=== PATIENT | female | born 1975 | race Caucasian/White ===

== ENCOUNTER 2020-03-17 20:19 | Emergency (ER) | payer OTHER ==
[~2020-03-17] VITALS: Ht 165.1 cm; Wt 59.1 kg
[2020-03-17] MEDS ORDERED: TOPI1CAP2 PO (20:32)
[2020-03-17] MEDS ORDERED: CARB10TACH PO (20:32)
[2020-03-17] MEDS ORDERED: LEVO30TA PO (20:32)
[2020-03-17 21:17] LABS: BASO % 0.5 % (0.0-1.0); EOS # 0.1 10^3/uL (0.0-0.5); EOS % 1.1 % (0.0-3.0); HEMATOCRIT 42.2 % (36.0-47.0); LYMPH # 2.8 10^3/uL (1.5-5.0); MEAN CORPUSCULAR HEMOGLOBIN 31.2 pg (27.0-33.0); MEAN CORPUSCULAR HGB CONC 33.2 g/dl (32.0-36.5); MONO # 0.8 10^3/uL (0.0-0.8); NEUTROPHILS # 4.2 10^3/uL (1.5-8.5); NEUTROPHILS % 53.1 % (36.0-66.0); PLATELET COUNT, AUTOMATED 285 10^3/uL (150-450); RED BLOOD COUNT 4.49 10^6/uL (4.00-5.40); WHITE BLOOD COUNT 7.9 10^3/uL (4.0-10.0)
[2020-03-17 21:24] LABS: ALT/SGPT 18 U/L (12-78); BILIRUBIN,DIRECT < 0.1 MG/DL (0.0-0.2); BILIRUBIN,TOTAL 0.2 MG/DL (0.2-1.0); LIPASE 192 U/L (73-393); TOTAL PROTEIN 7.7 GM/DL (6.4-8.2)
[2020-03-17] MEDS ORDERED: ISOVUE-370 76% 100ML VIAL As Ordered ONE (21:27)
[2020-03-17] MEDS ORDERED: NS 1,000 ML IV ONE (21:30)
[2020-03-17] MEDS ORDERED: MORPHINE 4 MG/ML 1ML VIAL/SYRINGE (J2270) IV ONE (21:30)
--- NOTE | 2020-03-17 22:14 | REPVR ---
PROCEDURE INFORMATION: Exam: CT Abdomen And Pelvis With Contrast Exam date and time: 03/17/2020 9:31 PM Age: 45 years old Clinical indication: Abdominal pain; Localized; Left lower quadrant (llq); Additional info: Llq abd pain, diarrhea TECHNIQUE: Imaging protocol: Computed tomography of the abdomen and pelvis with intravenous contrast. Radiation optimization: All CT scans at this facility use at least one of these dose optimization techniques: automated exposure control; mA and/or kV adjustment per patient size (includes targeted exams where dose is matched to clinical indication); or iterative reconstruction. Contrast material: ISOVUE 370; Contrast volume: 100 ml; Contrast route: INTRAVENOUS (IV); COMPARISON: No relevant prior studies available. FINDINGS: Liver: Normal. No mass. Gallbladder and bile ducts: Normal. No calcified stones. No ductal dilation. Pancreas: Suggestion of a 4 mm cyst in the head of the pancreas may be related to volume averaging affects (series 201, image 44). Spleen: Normal. No splenomegaly. Adrenals: Normal. No mass. Kidneys and ureters: Ptosis of the right kidney. No hydronephrosis. Stomach and bowel: The descending colon and rectosigmoid colon are relatively decompressed. No air-fluid levels are seen which might be expected with diarrhea. Appendix: No evidence of appendicitis. Intraperitoneal space: There is a small amount of free fluid in the posterior cul-de-sac. Vasculature: Unremarkable. No abdominal aortic aneurysm. Lymph nodes: Unremarkable. No enlarged lymph nodes. Bladder: Unremarkable as visualized. Reproductive: There is a 4.8 cm cyst present in the left adnexa. The uterus is retroverted and retroflexed and somewhat globular in configuration. Bones/joints: Chronic spondylolysis at L5.. No acute fracture. Soft tissues: There is generalized body wall edema. IMPRESSION: 1. 4.8 cm cyst in the left adnexa. Pelvic ultrasound more ideally suited for evaluation of the uterus and adnexa. 2. Possible 4 mm cyst in the head of the pancreas may be artifact related to volume averaging effects. Follow-up recommended.Recommend reimage every 1 year for 5 years. (PAXTON Edwards et al. ACR White Paper, March 2017) Electronically signed by: Kathy Estrada On 03/17/2020 22:13:36 PM
--- NOTE | 2020-03-17 23:10 | REPVR ---
PROCEDURE INFORMATION: Exam: US Pelvis Complete, Transabdominal and US Pelvis, Transvaginal Exam date and time: 03/17/2020 10:31 PM Age: 45 years old Clinical indication: Pelvic pain; Additional info: R/O torsion, L adenxal cyst TECHNIQUE: Imaging protocol: Real-time transabdominal and transvaginal pelvic ultrasound (complete) with image documentation. Transvaginal imaging was used for better evaluation of the endometrium and adnexa. COMPARISON: CT ABD/PEL W/IV CONTRAST ONLY 2020-03-17 21:28 FINDINGS: Uterus/cervix: Heterogeneous bulky uterus. Retroverted uterus. Amniotic scratch that 3.6 mm endometrial thickness. 7.1 x 4.9 x 5.2 cm uterus. Right adnexa: 1.9 x 1 x 2.1 cm right ovary with normal follicular architecture and blood flow. Left adnexa: 4.9 x 3.4 x 4.6 cm left ovary contains a large 4.5 cm simple ovarian cyst. Free fluid: None. Bladder: Bladder distension. IMPRESSION: 1. Large simple left ovarian cyst, recommend follow-up for resolution in 6 weeks. No evidence of torsion, though elevated risk related to large cyst. 2. Heterogeneous bulky uterus. Electronically signed by: Edgar Azul On 03/17/2020 23:09:12 PM
[2020-03-17 23:32] VITALS: BP 143/81
--- NOTE | 2020-03-21 10:58 | ED PDOC ---
Post-Departure Follow-Up certiifed letter sent to pt re formal read of us pelvis. obtain ob name and numb er and fx Tika Ramos MD Mar 21, 2020 10:58
== END 2020-03-17 23:45 | disposition home or self-care (01) ==
LOC: M ED 20:19
DX: N83.299 Other ovarian cyst, unspecified side (principal); R10.32 Left lower quadrant pain; N85.2 Hypertrophy of uterus; M79.7 Fibromyalgia; G50.0 Trigeminal neuralgia; Z88.0 Allergy status to penicillin; Z88.5 Allergy status to narcotic agent
CPT/HCPCS: 74177; 76830; 76856; 80047; 80076; 81001; 83690; 84702; 85025; 93976; 96361; 96374; 99284; J2270; Q9967

== ENCOUNTER 2020-04-13 08:39 | Emergency (ER) | payer OTHER ==
[~2020-04-13 08:39] MED LIST: CARB10TACH PO; LEVO30TA PO; TOPI1CAP2 PO
[2020-04-13] MEDS ORDERED: MORPHINE 4 MG/ML 1ML VIAL/SYRINGE (J2270) ONE (10:17)
[2020-04-13] MEDS ORDERED: ONDANSETRON 4MG/2ML VIAL ONE (10:17)
[2020-04-13] MEDS ORDERED: ISOVUE-370 76% 100ML VIAL ONE (11:34)
[2020-05-29 02:30] LABS: BASO % 0.4 % (0.0-1.0); EOS # 0.1 10^3/uL (0.0-0.5); EOS % 0.9 % (0.0-3.0); HEMATOCRIT 40.5 % (36.0-47.0); HEMOGLOBIN 13.7 g/dl (12.0-15.5); LYMPH # 1.6 10^3/uL (1.5-5.0); LYMPH % 23.6 % (24.0-44.0); MEAN CORPUSCULAR HEMOGLOBIN 31.4 pg (27.0-33.0); MEAN CORPUSCULAR HGB CONC 33.8 g/dl (32.0-36.5); MEAN CORPUSCULAR VOLUME 92.9 fl (80.0-96.0); MONO # 0.5 10^3/uL (0.0-0.8); MONO % 7.2 % (0.0-5.0); NEUTROPHILS # 4.7 10^3/uL (1.5-8.5); NEUTROPHILS % 67.8 % (36.0-66.0); PLATELET COUNT, AUTOMATED 261 10^3/uL (150-450); RED BLOOD COUNT 4.36 10^6/uL (4.00-5.40); WHITE BLOOD COUNT 6.9 10^3/uL (4.0-10.0)
[2020-05-29 02:43] LABS: APPEARANCE, URINE CLEAR (CLEAR); BACTERIA, URINE AUTO NEGATIVE (NEGATIVE); BILIRUBIN, URINE AUTO NEGATIVE (NEGATIVE); BLOOD, URINE BLOOD NEGATIVE (NEGATIVE); COLOR, URINE STRAW (YELLOW); GLUCOSE, URINE (UA) AUTO NEGATIVE (NEGATIVE); KETONE, URINE AUTO NEGATIVE (NEGATIVE); LEUKOCYTE ESTERASE, URINE AUTO NEGATIVE (NEGATIVE); NITRITE, URINE AUTO NEGATIVE (NEGATIVE); PROTEIN, URINE AUTO NEGATIVE (NEGATIVE); RBC, URINE AUTO 2 /HPF (0-3); SPECIFIC GRAVITY URINE AUTO 1.009 (1.002-1.035); SQUAMOUS EPITHELIAL CELL UR AU 1 /HPF (0-6); UROBILINOGEN, URINE AUTO 0.2 mg/dL (0.0-2.0); WBC, URINE AUTO 0 /HPF (0-3)
[2020-07-08 06:55] LABS: ALBUMIN 3.9 GM/DL (3.2-5.2); ALT/SGPT 19 U/L (12-78); BILIRUBIN,DIRECT < 0.1 MG/DL (0.0-0.2); BILIRUBIN,TOTAL 0.2 MG/DL (0.2-1.0); BLOOD UREA NITROGEN 12 MG/DL (7-18); CARBON DIOXIDE LEVEL 28 MEQ/L (21-32); CHLORIDE LEVEL 109 MEQ/L (98-107); GLOMERULAR FILTRATION RATE > 60.0 (>58); GLUCOSE, FASTING 88 MG/DL (70-100); LIPASE 137 U/L (73-393); POTASSIUM SERUM 4.4 MEQ/L (3.5-5.1); SODIUM LEVEL 141 MEQ/L (136-145); TOTAL PROTEIN 7.3 GM/DL (6.4-8.2)
[2020-07-08 06:58] LABS: HCG, SERUM QUALITATIVE NEGATIVE (NEGATIVE)
== END 2020-04-13 14:30 | disposition home or self-care (01) ==
LOC: M ED 08:39
DX: R10.84 Generalized abdominal pain (principal); M54.5 Low back pain; K86.2 Cyst of pancreas; N83.299 Other ovarian cyst, unspecified side; R11.0 Nausea; E03.9 Hypothyroidism, unspecified; F41.9 Anxiety disorder, unspecified; F12.90 Cannabis use, unspecified, uncomplicated; Z88.5 Allergy status to narcotic agent; Z79.899 Other long term (current) drug therapy
CPT/HCPCS: 74177; 80048; 80076; 81001; 83605; 83690; 84703; 85025; 87040; 87086; 96374; 96375; 99284; J2270; J2405; Q9967

== ENCOUNTER 2020-09-07 12:00 | Emergency (ER) | payer OTHER ==
[~2020-09-07] VITALS: Ht 165.1 cm; Wt 54.3 kg
[2020-09-07] MEDS ORDERED: MORPHINE 4 MG/ML 1ML VIAL/SYRINGE (J2270) IV ONE ×2 (13:45→16:15)
[2020-09-07 14:14] LABS: BASO % 0.5 % (0.0-1.0); EOS # 0.1 10^3/uL (0.0-0.5); HEMATOCRIT 42.7 % (36.0-47.0); HEMOGLOBIN 13.9 g/dl (12.0-15.5); LYMPH # 2.1 10^3/uL (1.5-5.0); MEAN CORPUSCULAR HEMOGLOBIN 30.1 pg (27.0-33.0); MEAN CORPUSCULAR HGB CONC 32.6 g/dl (32.0-36.5); MEAN CORPUSCULAR VOLUME 92.4 fl (80.0-96.0); MONO # 0.7 10^3/uL (0.0-0.8); MONO % 9.7 % (0.0-5.0); NEUTROPHILS # 4.4 10^3/uL (1.5-8.5); NEUTROPHILS % 60.5 % (36.0-66.0); PLATELET COUNT, AUTOMATED 250 10^3/uL (150-450); RED BLOOD COUNT 4.62 10^6/uL (4.00-5.40); WHITE BLOOD COUNT 7.3 10^3/uL (4.0-10.0)
--- NOTE | 2020-09-07 14:26 | REP ---
INDICATION: left-sided numbness. COMPARISON: None. TECHNIQUE: Helical scanning is acquired. 5 mm axial images were reformatted. Coronal MPR images were generated. FINDINGS: Bone window settings demonstrate an intact bony calvarium. There is no evidence of skull fracture or incidental bony calvarial lesion. The visualized paranasal sinuses appear clear. No intraorbital abnormality is seen. On soft tissue window setting images; the lateral, third, and fourth ventricles are normal in size and position. Hernandez-white differentiation pattern is normal above and below the tentorium. There are is no evidence of intracranial hemorrhage. No mass, edema, infarction, or midline shift is seen. No extra-axial fluid collection is appreciated. IMPRESSION: Negative noncontrast head CT. <Electronically signed by Jose Vieira > 09/07/20 [id number]
--- NOTE | 2020-09-07 14:29 | REP ---
INDICATION: CVA COMPARISON: None. TECHNIQUE: Portable AP view of the chest FINDINGS: The mediastinum and cardiac silhouette are within normal limits for portable technique. The lung nava are clear without acute consolidation, effusion, or pneumothorax. Skeletal structures demonstrate thoracic Roach rods. IMPRESSION: No acute cardiopulmonary process appreciated. <Electronically signed by Diego Cody > 09/07/20 [id number]
[2020-09-07 14:33] LABS: INR 1.04; PROTHROMBIN TIME 13.8 SECONDS (12.5-14.3)
[2020-09-07 14:34] LABS: PARTIAL THROMBOPLASTIN TIME 30.3 SECONDS (24.2-38.5)
[2020-09-07 14:48] LABS: BLOOD UREA NITROGEN 13 MG/DL (7-18); CARBON DIOXIDE LEVEL 30 MEQ/L (21-32); CHLORIDE LEVEL 111 MEQ/L (98-107); CPK CREATINE PHOSPHOKINASE 72 U/L (26-192); CREATININE FOR GFR 0.74 MG/DL (0.55-1.30); GLOMERULAR FILTRATION RATE > 60.0 (>58); GLUCOSE, FASTING 93 MG/DL (70-100); MB/CK RELATIVE INDEX 1.39 (< OR =4); POTASSIUM SERUM 3.8 MEQ/L (3.5-5.1); SODIUM LEVEL 143 MEQ/L (136-145); TROPONIN I < 0.02 NG/ML (< 0.10)
--- NOTE | 2020-09-07 16:00 | REP ---
INDICATION: neck pain with L hand numbness. COMPARISON: None. TECHNIQUE: Axial and sagittal imaging planes are utilized for T1 and T2-weighted scans. Sequences include spin-echo, fast spin echo, FLAIR, and diffusion weighted sequences. FINDINGS: No bony calvarial lesion is seen. Craniocervical junction and upper cervical cord are normal in appearance. There is no MR evidence of significant paranasal sinus disease. No intraorbital abnormality is seen. The lateral, third, and fourth ventricles are normal in size and position. Hernandez-white differentiation pattern is intact above and below the tentorium. There is no evidence of intracranial hemorrhage. No mass, infarction, extra-axial fluid collection or midline shift is seen. No abnormal white matter lesion is seen. Diffusion-weighted images show no evidence to suggest acute ischemia. IMPRESSION: Negative brain MRI study. <Electronically signed by Jose Vieira > 09/07/20 [id number]
--- NOTE | 2020-09-07 21:00 | REPVR ---
PROCEDURE INFORMATION: Exam: MR Cervical Spine Without and With Contrast Exam date and time: 09/07/2020 8:24 PM Age: 45 years old Clinical indication: Numbness and radiculopathy and weakness and other: Lt arm numbness; Cervicothoracic region; Radicular pain (radiculopathy); Cervical region; Prior surgery; Surgery date: 6+ months; Additional info: Neck pain with L hand numbness TECHNIQUE: Imaging protocol: Multiplanar magnetic resonance images of the cervical spine without and with intravenous contrast. Contrast material: PROHANCE; Contrast volume: 10 ml; Contrast route: INTRAVENOUS (IV); COMPARISON: No relevant prior studies available. FINDINGS: Vertebrae: Reversal of curvature in the cervical spine. Status post anterior interbody fusion of C6 and C7 using metallic screws. Spinal cord: Normal signal. No cord compression. C2-C3: No significant disc disease. No significant spinal stenosis. C3-C4: No significant disc disease. No significant spinal stenosis. C4-C5: Bulging annulus C4-C5 flattens the ventral subarachnoid space without cord impingement. C5-C6: Posterior disc protrusion at C5-C6 effaces the ventral subarachnoid space without significant cord impingement. C6-C7: No significant disc disease. No significant spinal stenosis. C7-T1: No significant disc disease. No significant spinal stenosis. Vertebral arteries: Expected flow voids in the vertebral arteries. Soft tissues: Unremarkable. IMPRESSION: 1. Bulging annuli at C4-C5 and posterior disc protrusion at C5-C6 without cord impingement. 2. Status post interbody fusion of C6 and C7. Electronically signed by: Yusef Maier On 09/07/2020 21:01:22 PM
[2020-09-07 21:45] VITALS: BP 149/74
--- NOTE | 2020-09-08 21:29 | ECGEPIP ---
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
== END 2020-09-07 22:27 | disposition home or self-care (01) ==
LOC: M ED 12:00
DX: R20.2 Paresthesia of skin (principal); M43.22 Fusion of spine, cervical region; G90.50 Complex regional pain syndrome I, unspecified; F12.10 Cannabis abuse, uncomplicated; Z88.1 Allergy status to other antibiotic agents; Z88.6 Allergy status to analgesic agent; Z88.8 Allergy status to other drugs, medicaments and biological substances; Z79.899 Other long term (current) drug therapy
CPT/HCPCS: 70450; 70551; 71045; 72156; 80048; 82550; 82553; 85025; 85610; 85730; 86850; 86900; 86901; 93005; 93041; 94760; 96374; 96376; 99285; J2270

== ENCOUNTER 2020-10-26 15:52 | Emergency (ER) | payer OTHER ==
[~2020-10-26] VITALS: Ht 165.1 cm; Wt 54.8 kg
--- OUTSIDE RECORDS SUMMARY | 2020-10-26 15:58 | CCD | Continuity of Care Document ---
Author Author Sandra BRICEÑO DO Organization Unknown Address [address] [place] [address] Phone [phone] Care Team Providers Care Shipping Receiving Manager Name Role Phone [address] [phone] Problems Active Problems Provider Date Cervical spondylosis without myelopathy De Briceño DO Onset: 01/12/2018 Thoracic spondylosis with myelopathy De Briceño DO Ons et: 01/12/2018 Degeneration of cervical intervertebral disc De Briceño DO Onset: 04/01/2019 Lumbosacral spondylosis without myelopathy De Briceño DO Onset: 03/16/2020 Social History Type Date Description Comments Sex Unknown ETOH Use Denies alcohol use Tobacco Use Start: Unknown Denies Tobacco Use Recreational Drug Use Denies Drug Use Allergies, Adverse Reactions, Alerts Active Allergies Reaction Severity Comments Date Augmentin 04/22/2018 Codeine 04/22/2018 Inactive Allergies NKDA 01/12/2018 Medications Active Medications SIG Qnty Indications Ordering Provide r Date Medrol 4mg TBPK use as direct ed 1units De Briceño DO 11/23/2018 Hydrocodone-Acetaminophen 5-325mg Tablets Unknown Clindamycin HCL 300mg Capsules Unknown Sumatriptan Succinate 100mg Tablets Niko Duran Rizatriptan Benzoate 5mg Tablets Unknown Amoxicillin/Clavulanate Potassium 875-125mg Tablets Take 1 Tablet By Mouth Every 12 Hours With Meals For 10 Days Unknown Promethazine HCL 25mg Tablets TK 1 T PO Q 4 H prn NV. MDD 4 TS Unknown Oxycodone-Acetaminophen 5-325mg Tablets Unknown Cephalexin 500mg Capsules Unknown Alprazolam 0.5mg Tablets Unknown Zolpidem Tartrate 10mg Tablets Unknown Ashlyna 0.15-0.03&0.01mg Tablets Unknown Topiramate 25mg Tablets [facility] Carbamazepine ER 200mg Tablets ER 12HR Joss Garcia MD Tramadol HCL 50mg Tablets Joss Garcia MD Medical Marijuana Unknown 000 Methylprednisolone 4mg TBPK take as directed on pack Unknown Lorazepam 0.5mg Tablets Joss Garcia MD Vitamin D (Ergocalciferol) 48831Yyzp Capsules [address] Gabapentin 300mg Capsules [facility] Zolpidem Tartrate 5mg Tablets [facility] Levothyroxine Sodium 112mcg Tablets Anson [address] Immunizations Description No Information Available Vital Signs Date Vital Result Comment 09/11/2020 11:24am Height 65 inches 5'5" Weight 130.00 lb BMI (Body Mass Index) 21.6 kg/m2 Respiratory Rate 16 /min Pain Level 7 03/16/2020 3:33pm Height 65 inches 5'5" Weight 130.00 lb BMI (Body Mass Index) 21.6 kg/m2 Results Description No Information Available Procedures Description No Information Available Medical Devices Description No Information Available Encounters Type Date Location Provider Dx Diagnosis Office Visit 09/11/2020 11:30a Main Office De Briceño DO M47.22 Other spondylosis with radiculopathy, cervical region M50.322 Other cervical disc degenera tion at C5-C6 level Assessments Date Code Description Provider 09/11/2020 M47.22 Other spondylosis with radiculop athy, cervical region Viet Shetty MS, Pac 09/11/2020 M47.22 Other spondylosis with radiculop athy, cervical region De Briceño DO 09/11/2020 M50.322 Other cervical disc degeneration at C5-C6 level Viet Shetty, MS, Pac 09/11/2020 M50.322 Other cervical disc degeneration at C5-C6 level De Briceño DO Plan of Treatment Future Appointment(s):* 10/23/2020 1:45 pm - De Briceño DO at Main Office 06/10/2019 - De Briceño DO* M47.22 Other spondylosis with radiculopathy, cervical region* Comments:* 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 Overall symptoms and arsenic levels are decreasing will hold off any invasive level treatment due to every time she moves her neck she gets shooting pain down her left arm we will obtain flexion-extension x-rays and also starting to some mild physical therapy and follow back in 3-4 months called any questions or worsening symptoms patient also seen and evaluated with Dr. Briceño * M50.30 Other cervical disc degeneration, unspecified cervical region * M47.14 Other spondylosis with myelopathy, thoracic region Functional Status Description No Information Available Mental Status Description No Information Available Referrals Description No Information Available
--- OUTSIDE RECORDS SUMMARY | 2020-10-26 15:58 | CCD | Continuity of Care Document ---
Author Author Sandra BRICEÑO DO Organization Unknown Address [address] [place] [address] Phone [phone] Care Team Providers Care Rail Transportation Operator Name Role Phone [address] [phone] Problems Active Problems Provider Date Lumbosacral spondylosis without myelopathy De Briceño DO Onset: 03/16/2020 Degeneration of cervical intervertebral disc De Briceño DO Onset: 04/01/2019 Thoracic spondylosis with myelopathy De Briceño DO Ons et: 01/12/2018 Cervical spondylosis without myelopathy eD Briceño DO Onset: 01/12/2018 Social History Type Date Description Comments Sex [...] Ashlyna 0.15-0.03&0.01mg Tablets Unknown Topiramate 25mg Tablets [facility] Carbamazepine ER 200mg Tablets ER 12HR Joss Garcia MD Tramadol HCL 50mg Tablets Joss Garcia MD Medical Marijuana Unknown 000 Methylprednisolone 4mg TBPK take as directed on pack Unknown Lorazepam 0.5mg Tablets Joss Garcia MD Vitamin D (Ergocalciferol) 87724Enly Capsules [address] Gabapentin 300mg Capsules [facility] Zolpidem Tartrate 5mg Tablets [facility] Levothyroxine Sodium 112mcg Tablets Anson K[address] Dr [...] Date Location Provider Dx Diagnosis Office Visit 03/16/2020 3:30p Main Office De Briceño DO M47.26 Other spondylosis with radiculopathy, lumbar region M47.22 Other spondylosis with radic ulopathy, cervical region M50.30 Other cervical disc degenera tion, unsp cervical region Assessments Date Code Description Provider 03/16/2020 M47.26 Other spondylosis with radiculop athy, lumbar region De Briceño DO 03/16/2020 M47.22 Other spondylosis with radiculop athy, cervical region De Briceño DO 03/16/2020 M50.30 Other cervical disc degeneration , unspecified cervical region De Briceño DO Plan of Treatment No Information Available Functional Status Description No Information Available Mental Status Description No Information Available Referrals Description No Information Available
--- OUTSIDE RECORDS SUMMARY | 2020-10-26 15:59 | CCD ---
Author Author [facility] Organization [facility] Address Unknown Phone Unavailable Care Team Providers Care Memorial Adviser Name Role Phone AMIE, Emi RAMIREZ MD Unavailable Unavailable SHATLA, A ASHLEY BILL Unavailable Unavailable SHATLA, A ASHLEY BILL Unavailable Unavailable SHATLA, A ASHLEY BILL Unavailable Unavailable SHATLA, A ASHLEY BILL Unavailable Unavailable SHATLA, Emi RAMIREZ MD Unavailable Unavailable SHATLA, Emi RAMIREZ MD Unavailable Unavailable SHATLA, A ASHLEY BILL Unavailable Unavailable SHATLA, A ASHLEY BILL Unavailable Unavailable SHATLA, A ASHLEY BILL Unavailable Unavailable SHATLA, A ASHLEY BILL Unavailable Unavailable SHATLA, A ASHLEY BILL Unavailable Unavailable SHATLA, A ASHLEY BILL Unavailable Unavailable SHATLA, A ASHLEY BILL Unavailable Unavailable SHATLA, A ASHLEY BILL Unavailable Unavailable SHATLA, A ASHLEY BILL Unavailable Unavailable SHATLA, A ASHLEY BILL Unavailable Unavailable SHATLA, A AHMED MD Unavailable Unavailable SHATLA, A AHMED MD Unavailable Unavailable SHATLA, A AHMED MD Unavailable Unavailable SHATLA, A AHMED MD Unavailable Unavailable SHATLA, A AHMED MD Unavailable Unavailable SHATLA, A AHMED MD Unavailable Unavailable SHATLA, A AHMED MD Unavailable Unavailable SHATLA, A AHMED MD Unavailable Unavailable SHATLA, A AHMED MD Unavailable Unavailable SHATLA, A AHMED MD Unavailable Unavailable SHATLA, A AHMED MD Unavailable Unavailable SHATLA, A AHMED MD Unavailable Unavailable SHATLA, A AHMED MD Unavailable Unavailable SHATLA, A AHMED MD Unavailable Unavailable SHATLA, A AHMED MD Unavailable Unavailable SHATLA, A AHMED MD Unavailable Unavailable SHATLA, A AHMED MD Unavailable Unavailable SHATLA, A AHMED MD Unavailable Unavailable SHATLA, A AHMED MD Unavailable Unavailable SHATLA, A AHMED MD Unavailable Unavailable SHATLA, A AHMED MD Unavailable Unavailable SHATLA, A AHMED MD Unavailable Unavailable SHATLA, A AHMED MD Unavailable Unavailable SHATLA, A AHMED MD Unavailable Unavailable SHATLA, A AHMED MD Unavailable Unavailable SHATLA, A AHMED MD Unavailable Unavailable SHATLA, A AHMED MD Unavailable Unavailable SHATLA, A AHMED MD Unavailable Unavailable SHATLA, A AHMED MD Unavailable Unavailable SHATLA, A AHMED MD Unavailable Unavailable SHATLA, A AHMED MD Unavailable Unavailable BETTIE BILL, YOLANDA WALSH Unavailable Unavailable Bucsek, Kenneth Moore MD Unavailable Unavailable Bucsek, Kenneth Moore MD Unavailable Unavailable Bucsek, Kenneth Moore MD Unavailable Unavailable Bucsek, Kenneth Moore MD Unavailable Unavailable Bucsek, Kenneth Moore MD Unavailable Unavailable Bucsek, Kenneth Moore MD Unavailable Unavailable Bucsek, Kenneth Moore MD Unavailable Unavailable BucsekKenneth MD Unavailable Unavailable BucsekKenneth MD Unavailable Unavailable BucsekKenneth MD Unavailable Unavailable Bucsek, Kenneth Moore MD Unavailable Unavailable Bucsek, Kenneth Moore MD Unavailable Unavailable Bucsek, Kenneth Moore MD Unavailable Unavailable BucsekKenneth MD Unavailable Unavailable BucsekKenneth MD Unavailable Unavailable Bucsek, Kenneth Moore MD Unavailable Unavailable Bucsek, Kenneth Moore MD Unavailable Unavailable Bucsek, Kenneth Moore MD Unavailable Unavailable Bucsek, Kenneth Moore MD Unavailable Unavailable Bucsek, Kenneth Moore MD Unavailable Unavailable Bucsek, Kenneth Moore MD Unavailable Unavailable Bucsek, Kenneth Moore MD Unavailable Unavailable Bucsek, Kenneth Moore MD Unavailable Unavailable Bucsek, Kenneth Moore MD Unavailable Unavailable Bucsek, Kenneth Moore MD Unavailable Unavailable Bucsek, Kenneth Moore MD Unavailable Unavailable YOLANDA ALEXANDRE MA Unavailable Unavailable JEFF, K MIKE BILL Unavailable Unavailable JEFF, K MIKE BILL Unavailable Unavailable JEFF, K MIKE BILL Unavailable Unavailable JEFF, K MIKE BILL Unavailable Unavailable JEFF, K MIKE BILL Unavailable Unavailable JEFF, K MIKE BILL Unavailable Unavailable JEFF, K MIKE BILL Unavailable Unavailable JEFF, K MIKE BILL Unavailable Unavailable JEFF, K MIKE BILL Unavailable Unavailable JEFF, K MIKE BILL Unavailable Unavailable JEFF, K MIKE BILL Unavailable Unavailable JEFF, K MIKE BILL Unavailable Unavailable JEFF, K MIKE BILL Unavailable Unavailable JEFF, K MIKE BILL Unavailable Unavailable JEFF, K MIKE BILL Unavailable Unavailable JEFF, K MIKE BILL Unavailable Unavailable JEFF, K MIKE BILL Unavailable Unavailable JEFF, K MIKE BILL Unavailable Unavailable JEFF, K MIKE BILL Unavailable Unavailable JEFF, K MIKE BILL Unavailable Unavailable JEFF, K MIKE BILL Unavailable Unavailable JEFF, K MIKE BILL Unavailable Unavailable JEFF, K MIKE BILL Unavailable Unavailable JEFF, K MIKE BILL Unavailable Unavailable JEFF, K MIKE BILL Unavailable Unavailable JEFF, K MIKE BILL Unavailable Unavailable JEFF, K MIKE BILL Unavailable Unavailable JEFF, K MIKE BILL Unavailable Unavailable JEFF, K MIKE BILL Unavailable Unavailable JEFF, K MIKE BILL Unavailable Unavailable JEFF, K MIKE BILL Unavailable Unavailable JEFF, K MIKE BILL Unavailable Unavailable JEFF, K MIKE BILL Unavailable Unavailable JEFF, K MIKE BILL Unavailable Unavailable JEFF, K MIKE BILL Unavailable Unavailable JEFF, K MIKE BILL Unavailable Unavailable JEFF, K MIKE BILL Unavailable Unavailable JEFF, K MIKE BILL Unavailable Unavailable JEFF, K MIKE BILL Unavailable Unavailable JEFF, K MIKE BILL Unavailable Unavailable JEFF, K MIKE BILL Unavailable Unavailable JEFF, K MIKE BILL Unavailable Unavailable JEFF, K MIKE BILL Unavailable Unavailable JEFF, K MIKE BILL Unavailable Unavailable JEFF, K MIKE BILL Unavailable Unavailable JEFF, K MIKE BILL Unavailable Unavailable JEFF, K MIKE BILL Unavailable Unavailable JEFF, K MIKE BILL Unavailable Unavailable JEFF, K MIKE BILL Unavailable Unavailable JEFF, K MIKE BILL Unavailable Unavailable JFEF, K MIKE BILL Unavailable Unavailable JEFF, K MIKE BILL Unavailable Unavailable JEFF, K MIKE BILL Unavailable Unavailable JEFF, K MIKE BILL Unavailable Unavailable Qandah, Basem De Aziz DO Unavailable Unavailab le Qandah, Basem De Aziz DO Unavailable Unavailab le Qandah, Basem De Aziz DO Unavailable Unavailab le Qandah, Basem De Aziz DO Unavailable Unavailab le Qandah, Basem De Aziz DO Unavailable Unavailab le Qandah, Basem De Aziz DO Unavailable Unavailab le Qandah, Basem De Aziz DO Unavailable Unavailab le Qandah, Basem De Aziz DO Unavailable Unavailab le Qandah, Basem De Aziz DO Unavailable Unavailab le Qandah, Basem De Aziz DO Unavailable Unavailab le Qandah, Basem De Aziz DO Unavailable Unavailab le Qandah, Basem De Aziz DO Unavailable Unavailab le Qandah, Basem De Aziz DO Unavailable Unavailab le Qandah, Basem De Aziz DO Unavailable Unavailab le Qandah, Basem De Aziz DO Unavailable Unavailab le Qandah, Basem De Aziz DO Unavailable Unavailab le Qandah, Basem De Aziz DO Unavailable Unavailab le Qandah, Basem De Aziz DO Unavailable Unavailab le Qandah, Basem De Aziz DO Unavailable Unavailab le Qandah, Basem De Aziz DO Unavailable Unavailab le Qandah, Basem De Aziz DO Unavailable Unavailab le Qandah, Basem De Aziz DO Unavailable Unavailab le Qandah, Basem De Aziz DO Unavailable Unavailab le Qandah, Basem De Aziz DO Unavailable Unavailab le Qandah, Basem De Aziz DO Unavailable Unavailab le Qandah, Basem De Aziz DO Unavailable Unavailab le Qandah, Basem De Aziz DO Unavailable Unavailab le Qandah, Basem De Aziz DO Unavailable Unavailab le Qandah, Basem De Aziz DO Unavailable Unavailab le Qandah, Basem De Aziz DO Unavailable Unavailab le Qandah, Basem De Aziz DO Unavailable Unavailab le Qandah, Basem De Aziz DO Unavailable Unavailab le Qandah, Basem De Aziz DO Unavailable Unavailab le Qandah, Basem De Aziz DO Unavailable Unavailab le Qandah, Basem De Aziz DO Unavailable Unavailab le Qandah, Basem De Aziz DO Unavailable Unavailab le Qandah, Basem De Aziz DO Unavailable Unavailab le Qandah, Basem De Aziz DO Unavailable Unavailab le Qandah, Basem De Aziz DO Unavailable Unavailab le Qandah, Basem De Aziz DO Unavailable Unavailab le Qandah, Basem De Aziz DO Unavailable Unavailab le Qandah, Basem De Aziz DO Unavailable Unavailab le Qandah, Basem De Aziz DO Unavailable Unavailab le Qandah, Basem De Aziz DO Unavailable Unavailab le Qandah, Basem De Aziz DO Unavailable Unavailab le Qandah, Basem De Aziz DO Unavailable Unavailab le Qandah, Basem De Aziz DO Unavailable Unavailab le Qandah, Basem De Aziz DO Unavailable Unavailab le Qandah, Basem De Aziz DO Unavailable Unavailab le Qandah, Basem De Aziz DO Unavailable Unavailab le Qandah, Basem De Aziz DO Unavailable Unavailab le Qandah, Basem De Aziz DO Unavailable Unavailab le Qandah, Basem De Aziz DO Unavailable Unavailab le Qandah, Basem De Aziz DO Unavailable Unavailab le Qandah, Basem De Aziz DO Unavailable Unavailab le Qandah, Basem De Aziz DO Unavailable Unavailab le Qandah, Basem De Aziz DO Unavailable Unavailab le Qandah, Basem De Aziz DO Unavailable Unavailab le Qandah, Basem De Aziz DO Unavailable Unavailab le Qandah, Basem De Aziz DO Unavailable Unavailab le Qandah, Basem De Aziz DO Unavailable Unavailab le Qandah, Basem De Aziz DO Unavailable Unavailab le Qandah, Basem De Aziz DO Unavailable Unavailab le Qandah, Basem De Aziz DO Unavailable Unavailab le Qandah, Basem De Aziz DO Unavailable Unavailab le Qandah, Basem De Aziz DO Unavailable Unavailab le Qandah, Basem De Aziz DO Unavailable Unavailab le Qandah, Basem De Aziz DO Unavailable Unavailab le Qandah, Basem De Aziz DO Unavailable Unavailab le Sarthak CORONADO MD Unavailable Unavailable Sarthak CORONADO MD Unavailable Unavailable Sarthak CORONADO MD Unavailable Unavailable Sarthak CORONADO MD Unavailable Unavailable Sarthak CORONADO MD Unavailable Unavailable Sarthak CORONADO MD Unavailable Unavailable Sarthak CORONADO MD Unavailable Unavailable Sarthak CORONADO MD Unavailable Unavailable Sarthak CORONADO MD Unavailable Unavailable Sarthak CORONADO MD Unavailable Unavailable Sarthak CORONADO MD Unavailable Unavailable Sarthak CORONADO MD Unavailable Unavailable Sarthak CORONADO MD Unavailable Unavailable Sarthak CORONADO MD Unavailable Unavailable Sarthak CORONADO MD Unavailable Unavailable Sarthak CORONADO MD Unavailable Unavailable Sarthak CORONADO MD Unavailable Unavailable Sarthak CORONADO MD Unavailable Unavailable Sarthak CORONADO MD Unavailable Unavailable BREHASarthak STROUD MD Unavailable Unavailable BREHASarthak STROUD MD Unavailable Unavailable BREHAUTSarthak MD Unavailable Unavailable BREHAUT, Sarthak MALCOLM MD Unavailable Unavailable BREHAUT, Sarthak MALCOLM MD Unavailable Unavailable BREHAUT, Sarthak MALCOLM MD Unavailable Unavailable BREHAUTSarthak MD Unavailable Unavailable BREHASarthak STROUD MD Unavailable Unavailable BREHASarthak STROUD MD Unavailable Unavailable BREHAUTSarthak MD Unavailable Unavailable BREHAUT, Sarthak MALCOLM MD Unavailable Unavailable BREHAUT, Sarthak MALCOLM MD Unavailable Unavailable BREHAUT, Sarthak MALCOLM MD Unavailable Unavailable BREHAUTSarthak MD Unavailable Unavailable BREHASarthak STROUD MD Unavailable Unavailable BREHASarthak STROUD MD Unavailable Unavailable BREHASarthak STROUD MD Unavailable Unavailable BREHAUTSarthak MD Unavailable Unavailable BREHAUT, Sarthak MALCOLM MD Unavailable Unavailable BREHAMAXIMUS, Sarthak MALCOLM MD Unavailable Unavailable BREHASarthak STROUD MD Unavailable Unavailable BRESrathak PORTILLO MD Unavailable Unavailable BREHASarthak STROUD MD Unavailable Unavailable BREHASarthak STROUD MD Unavailable Unavailable BREHASarthak STROUD MD Unavailable Unavailable BREHASarthak STROUD MD Unavailable Unavailable BREHASarthak STROUD MD Unavailable Unavailable BRESarthak PORTILLO MD Unavailable Unavailable BRESarthak PORTILLO MD Unavailable Unavailable BRESarthak PORTILLO MD Unavailable Unavailable BREHASarthak STROUD MD Unavailable Unavailable BREHASarthak STROUD MD Unavailable Unavailable BREHASarthak STROUD MD Unavailable Unavailable BRESarthak PORTILLO MD Unavailable Unavailable BRESarthak PORTILLO MD Unavailable Unavailable BRESarthak PORTILLO MD Unavailable Unavailable BRESarthak PORTILLO MD Unavailable Unavailable BRESarthak PORTILLO MD Unavailable Unavailable BREHASarthak STROUD MD Unavailable Unavailable BREHASarthak STROUD MD Unavailable Unavailable BREHASarthak STROUD MD Unavailable Unavailable BRESarthak PORTILLO MD Unavailable Unavailable BRESarthak PORTILLO MD Unavailable Unavailable BRESarthak PORTILLO MD Unavailable Unavailable BRESarthak PORTILLO MD Unavailable Unavailable Yoandy Randall MD Unavailable Unavailable Yoandy Randall MD Unavailable Unavailable Yoandy Randall MD Unavailable Unavailable Yoandy Randall MD Unavailable Unavailable Yoandy Randall MD Unavailable Unavailable Yoandy Randall MD Unavailable Unavailable Yoandy Randall MD Unavailable Unavailable Yoandy Randall MD Unavailable Unavailable Chahfe, Yoandy Osvaldo MD Unavailable Unavailable Chahfe, Yoandy Osvaldo MD Unavailable Unavailable Chahfe, Yoandy Osvaldo BILL Unavailable Unavailable Chahfe, Yoandy Osvaldo MD Unavailable Unavailable Chahfe, Yoandy Osvaldo MD Unavailable Unavailable Chahfe, Yoandy Osvaldo BILL Unavailable Unavailable Chahfe, Yoandy Osvaldo MD Unavailable Unavailable Chahfe, Yoandy Osvaldo MD Unavailable Unavailable Chahfe, Yoandy Osvaldo MD Unavailable Unavailable Chahfe, Yoandy Osvaldo MD Unavailable Unavailable Chahfe, Yoandy Osvaldo MD Unavailable Unavailable Chahfe, Yoandy Osvaldo MD Unavailable Unavailable Chahfe, Yoandy Ovsaldo MD Unavailable Unavailable Chahfe, Yoandy Osvaldo MD Unavailable Unavailable Chahfe, Yoandy Osvaldo MD Unavailable Unavailable Chahfe, Yoandy Osvaldo MD Unavailable Unavailable Chahfe, Yoandy Osvaldo MD Unavailable Unavailable Giuliahfe, Yoandy Osvaldo BILL Unavailable Unavailable Chahfe, Yoandy Osvaldo MD Unavailable Unavailable Chahfe, Yoandy Osvaldo MD Unavailable Unavailable Chahfe, Yoandypato Palm MD Unavailable Unavailable Giuliahfe, Yoandy Osvaldo BILL Unavailable Unavailable Elefe, Yoandypato Palm MD Unavailable Unavailable Elefe, Yoandypato Palm MD Unavailable Unavailable Elefe, Yoandypato Palm MD Unavailable Unavailable Elefe, Yoandypato Palm MD Unavailable Unavailable Elefe, Yoandypato Palm MD Unavailable Unavailable Elefe, Yoandypato Palm MD Unavailable Unavailable Elefe, Yoandypato Palm MD Unavailable Unavailable Elefe, Yoandypato Palm MD Unavailable Unavailable Elefe, Yoandypato Palm MD Unavailable Unavailable Elefe, Yoandypato Palm MD Unavailable Unavailable Elefe, Yoandypato Palm MD Unavailable Unavailable Tonia, Yoandypato Palm MD Unavailable Unavailable Elefe, Yoandypato Palm MD Unavailable Unavailable Tonia, Yoandypato Palm MD Unavailable Unavailable Tonia, Yoandypato Palm MD Unavailable Unavailable Tonia, Yoandypato Palm MD Unavailable Unavailable Tonia, Yoandypato Palm MD Unavailable Unavailable Tonia, Yoandypato Palm MD Unavailable Unavailable Elefe, Yoandypato Palm MD Unavailable Unavailable ElefeYoandy MD Unavailable Unavailable ElefeYoandy MD Unavailable Unavailable ElefeYoandy MD Unavailable Unavailable ElefeYoandy MD Unavailable Unavailable ElefeYoandy MD Unavailable Unavailable ElefeYoandy MD Unavailable Unavailable ElefeYoandy MD Unavailable Unavailable ElefeYoandy MD Unavailable Unavailable ElefeYoandy MD Unavailable Unavailable Elefe, Yoandy Palm MD Unavailable Unavailable Elefe, Yoandy Palm MD Unavailable Unavailable ElefeYoandy MD Unavailable Unavailable Elefe, Yoandy Palm MD Unavailable Unavailable ElefeYoandy MD Unavailable Unavailable ElefeYoandy MD Unavailable Unavailable ElefeYoandy MD Unavailable Unavailable Yoandy Randall MD Unavailable Unavailable Yoandy Randall MD Unavailable Unavailable Yoandy Randall MD Unavailable Unavailable ElefeYoandy MD Unavailable Unavailable ElefeYoandy MD Unavailable Unavailable Yoandy Randall MD Unavailable Unavailable ElefeYoandy MD Unavailable Unavailable Yoandy Randall MD Unavailable Unavailable Yoandy Randall MD Unavailable Unavailable Yoandy Randall MD Unavailable Unavailable Yoandy Randall MD Unavailable Unavailable Yoandy Randall MD Unavailable Unavailable Yoandy Randall MD Unavailable Unavailable [place], Juan DPM Unavailable Unavailable [place], Juan DPM Unavailable Unavailable [place], Juan DPM Unavailable Unavailable [place], Juan DPM Unavailable Unavailable [place], Juan DPM Unavailable Unavailable [place], Juan DPM Unavailable Unavailable [place], Juan DPM Unavailable Unavailable [place], Juan DPM Unavailable Unavailable [place], Juan DPM Unavailable Unavailable [place], Juan DPM Unavailable Unavailable [place], Juan DPM Unavailable Unavailable [place], Juan DPM Unavailable Unavailable [place], Juan DPM Unavailable Unavailable [place], Juan DPM Unavailable Unavailable [place], Juan DPM Unavailable Unavailable [place], Jaun DPM Unavailable Unavailable [place], Juan DPM Unavailable Unavailable [place], Juan DPM Unavailable Unavailable [place], Juan DPM Unavailable Unavailable [place], Juan DPM Unavailable Unavailable [place], Juan DPM Unavailable Unavailable [place], Juan DPM Unavailable Unavailable [place], Juan DPM Unavailable Unavailable [place], Juan DPM Unavailable Unavailable [place], Juan DPM Unavailable Unavailable [place], Juan DPM Unavailable Unavailable [place], Juan DPM Unavailable Unavailable [place], Juan DPM Unavailable Unavailable [place], Juan DPM Unavailable Unavailable BREHAUTSarthak MD Unavailable Unavailable BREHAUTSarthak MD Unavailable Unavailable BREHAUTSarthak MD Unavailable Unavailable BREHASarthak STROUD MD Unavailable Unavailable BREHAUTSarthak MD Unavailable Unavailable BREHAUTSarthak MD Unavailable Unavailable BREHAUTSarthak MD Unavailable Unavailable BREHAUTSarthak MD Unavailable Unavailable BREHASarthak STROUD MD Unavailable Unavailable BREHASarthak STROUD MD Unavailable Unavailable BREHASarthak STROUD MD Unavailable Unavailable BREHASarthak STROUD MD Unavailable Unavailable BREHAUTSarthak MD Unavailable Unavailable BREHASarthak STROUD MD Unavailable Unavailable BREHASarthak STROUD MD Unavailable Unavailable BREHASarthak STROUD MD Unavailable Unavailable BRESarthak PORTILLO MD Unavailable Unavailable BRESarthak PORTILLO MD Unavailable Unavailable BRESarthak PORTILLO MD Unavailable Unavailable BREHASarthak STROUD MD Unavailable Unavailable BREHASarthak STROUD MD Unavailable Unavailable BREHASarthak STROUD MD Unavailable Unavailable BRESarthak PORTILLO MD Unavailable Unavailable BRESarthak PORTILLO MD Unavailable Unavailable BRESarthak PORTILLO MD Unavailable Unavailable BREHASarthak STROUD MD Unavailable Unavailable BREHASarthak STROUD MD Unavailable Unavailable BREHASarthak STROUD MD Unavailable Unavailable BREHASarthak STROUD MD Unavailable Unavailable BREHASarthak STROUD MD Unavailable Unavailable BRESarthak PORTILLO MD Unavailable Unavailable BRESarthak PORTILLO MD Unavailable Unavailable BRESarthak PORTILLO MD Unavailable Unavailable BREHASarthak STROUD MD Unavailable Unavailable BREHASarthak STROUD MD Unavailable Unavailable BREHASarthak STROUD MD Unavailable Unavailable BREHASarthak STROUD MD Unavailable Unavailable BREHASarthak STROUD MD Unavailable Unavailable BRESarthak PORTILLO MD Unavailable Unavailable BREHASarthak STROUD MD Unavailable Unavailable BREHASarthak STROUD MD Unavailable Unavailable BREHASarthak STROUD MD Unavailable Unavailable BREHAUTSarthak MD Unavailable Unavailable BREHASarthak STROUD MD Unavailable Unavailable BREHAUT, Sarthak MALCOLM MD Unavailable Unavailable BREHAUT, Sarthak MALCOLM MD Unavailable Unavailable BREHAUT, Sarthak MALCOLM MD Unavailable Unavailable BREHAUT, Sarthak MALCOLM MD Unavailable Unavailable BREHAUT, Sarthak MALCOLM MD Unavailable Unavailable BREHAUT, Sarthak MALCOLM MD Unavailable Unavailable BREHAUT, Sarthak MALCOLM MD Unavailable Unavailable BREHAUT, Sarthak MALCOLM MD Unavailable Unavailable BREHAUT, Sarthak MALCOLM MD Unavailable Unavailable BREHAUT, Sarthak MALCOLM MD Unavailable Unavailable BREHAUT, Sarthak MALCOLM MD Unavailable Unavailable BREHAUT, Sarthak MALCOLM MD Unavailable Unavailable BREHAUT, Sarthak MALCOLM MD Unavailable Unavailable BREHAUT, Sarthak MALCOLM MD Unavailable Unavailable BREHAUT, Sarthak MALCOLM MD Unavailable Unavailable BREHAUT, Sarthak MALCOLM MD Unavailable Unavailable BREHAUT, Sarthak MALCOLM MD Unavailable Unavailable BREHAUT, Sarthak MALCOLM MD Unavailable Unavailable BREHAUT, Sarthak MALCOLM MD Unavailable Unavailable BREHAUT, Sarthak MALCOLM MD Unavailable Unavailable BREHAUT, Sarthak MALCOLM MD Unavailable Unavailable BREHAUT, Sarthak MALCOLM MD Unavailable Unavailable BREHAUT, Sarthak MALCOLM MD Unavailable Unavailable BREHAUT, Sarthak MALCOLM MD Unavailable Unavailable BREHAUT, Sarthak MALCOLM MD Unavailable Unavailable BREHAUT, Sarthak MALCOLM MD Unavailable Unavailable BREHAUT, Sarthak MALCOLM MD Unavailable Unavailable BREHAUT, Sarthak MALCOLM MD Unavailable Unavailable BREHAUT, Sarthak MALCOLM MD Unavailable Unavailable BREHAUT, Sarthak MALCOLM MD Unavailable Unavailable BREHAUT, Sarthak MALCOLM MD Unavailable Unavailable BREHAUT, Sarthak MALCOLM MD Unavailable Unavailable BREHAUT, Sarthak MALCOLM MD Unavailable Unavailable BREHAUT, Sarthak MALCOLM MD Unavailable Unavailable BREHAUT, Sarthak MALCOLM MD Unavailable Unavailable BREHAMAXIMUS, Sarthak MALCOLM MD Unavailable Unavailable BREHAUT, Sarthak MALCOLM MD Unavailable Unavailable BREHAUT, Sarthak MALCOLM MD Unavailable Unavailable BREHAUT, Sarthak MALCOLM MD Unavailable Unavailable BREHAUT, Sarthak MALCOLM MD Unavailable Unavailable BREHAUT, Sarthak MALCOLM MD Unavailable Unavailable BREHAUT, Sarthak MALCOLM MD Unavailable Unavailable BREHAUT, Sarthak MALCOLM MD Unavailable Unavailable BREHAUT, Sarthak MALCOLM MD Unavailable Unavailable BREHAUT, Sarthak MALCOLM MD Unavailable Unavailable BREHAUT, Sarthak MALCOLM MD Unavailable Unavailable BREHAUT, Sarthak MALCOLM MD Unavailable Unavailable BREHAUT, Sarthak MALCOLM MD Unavailable Unavailable BREHAUT, Sarthak MALCOLM MD Unavailable Unavailable BREHAUT, Sarthak MALCOLM MD Unavailable Unavailable BREHAUT, Sarthak MALCOLM MD Unavailable Unavailable BREHAUT, Sarthak MALCOLM MD Unavailable Unavailable BREHAUT, Sarthak MALCOLM MD Unavailable Unavailable BREHAUT, Sarthak MALCOLM MD Unavailable Unavailable BREHAUT, Sarthak MALCOLM MD Unavailable Unavailable BREHAUT, Sarthak MALCOLM MD Unavailable Unavailable BRESarthak PORTILLO MD Unavailable Unavailable BRESarthak PORTILLO MD Unavailable Unavailable BREHASarthak STROUD MD Unavailable Unavailable BREHASarthak STROUD MD Unavailable Unavailable BREHASarthak STROUD MD Unavailable Unavailable BREHASarthak STROUD MD Unavailable Unavailable BRESarthak PORTILLO MD Unavailable Unavailable BRESarthak PORTILLO MD Unavailable Unavailable BRESarthak PORTILLO MD Unavailable Unavailable BREHASarthak STROUD MD Unavailable Unavailable BREHASarthak STROUD MD Unavailable Unavailable BREHASarthak STROUD MD Unavailable Unavailable BRESarthak PORTILLO MD Unavailable Unavailable BRESarthak PORTILLO MD Unavailable Unavailable BRESarthak PORTILLO MD Unavailable Unavailable BRESarthak PORTILLO MD Unavailable Unavailable BRESarthak PORTILLO MD Unavailable Unavailable BRESarthak PORTILLO MD Unavailable Unavailable BRESarthak PORTILLO MD Unavailable Unavailable BRESarthak PORTILLO MD Unavailable Unavailable BRESarthak PORTILLO MD Unavailable Unavailable BRESarthak PORTILLO MD Unavailable Unavailable BRESarthak PORTILLO MD Unavailable Unavailable BRESarthak PORTILLO MD Unavailable Unavailable BRESarthak PORTILLO MD Unavailable Unavailable BRESarthak PORTILLO MD Unavailable Unavailable BRESarthak PORTILLO MD Unavailable Unavailable BRESarthak PORTILLO MD Unavailable Unavailable Woodrick, Yola Tereza ANAESTHETIC TECHNICIAN-C Unavailable Unavail able Woodrick, Yola Tereza ANAESTHETIC TECHNICIAN-C Unavailable Unavail able Woodrick, Yola Tereza ANAESTHETIC TECHNICIAN-C Unavailable Unavail able Woodrick, Yola Tereza ANAESTHETIC TECHNICIAN-C Unavailable Unavail able Woodrick, Yola Tereza ANAESTHETIC TECHNICIAN-C Unavailable Unavail able Woodrick, Yola Tereza ANAESTHETIC TECHNICIAN-C Unavailable Unavail able Woodrick, Yola Tereza ANAESTHETIC TECHNICIAN-C Unavailable Unavail able Woodrick, Yola Tereza ANAESTHETIC TECHNICIAN-C Unavailable Unavail able Woodrick, Yola Tereza ANAESTHETIC TECHNICIAN-C Unavailable Unavail able Woodrick, Yola Tereza ANAESTHETIC TECHNICIAN-C Unavailable Unavail able Woodrick, Yola Tereza ANAESTHETIC TECHNICIAN-C Unavailable Unavail able Woodrick, Yola Tereza ANAESTHETIC TECHNICIAN-C Unavailable Unavail able Woodrick, Yola Tereza ANAESTHETIC TECHNICIAN-C Unavailable Unavail able Woodrick, Yola Tereza ANAESTHETIC TECHNICIAN-C Unavailable Unavail able Woodrick, Yola Tereza ANAESTHETIC TECHNICIAN-C Unavailable Unavail able Woodrick, Yola Tereza ANAESTHETIC TECHNICIAN-C Unavailable Unavail able Woodrick, Yola Tereza ANAESTHETIC TECHNICIAN-C Unavailable Unavail able Woodrick, Yola Tereza ANAESTHETIC TECHNICIAN-C Unavailable Unavail able Woodrick, Yola Tereza ANAESTHETIC TECHNICIAN-C Unavailable Unavail able Woodrick, Yola Tereza ANAESTHETIC TECHNICIAN-C Unavailable Unavail able Woodrick, Yola Tereza ANAESTHETIC TECHNICIAN-C Unavailable Unavail able Woodrick, Yola Tereza ANAESTHETIC TECHNICIAN-C Unavailable Unavail able Woodrick, Yola Tereza ANAESTHETIC TECHNICIAN-C Unavailable Unavail able Woodrick, Yola Tereza ANAESTHETIC TECHNICIAN-C Unavailable Unavail able Woodrick, Yola Tereza ANAESTHETIC TECHNICIAN-C Unavailable Unavail able Woodrick, Yola Tereza ANAESTHETIC TECHNICIAN-C Unavailable Unavail able Woodrick, Yola Tereza ANAESTHETIC TECHNICIAN-C Unavailable Unavail able Woodrick, Yola Tereza ANAESTHETIC TECHNICIAN-C Unavailable Unavail able Woodrick, Yola Tereza ANAESTHETIC TECHNICIAN-C Unavailable Unavail able DEBONI, R ASHLEY MD Unavailable Unavailable DEBONI, R ASHLEY MD Unavailable Unavailable DEBONI, R ASHLEY MD Unavailable Unavailable DEBONI, R ASHLEY MD Unavailable Unavailable DEBONI, R ASHLEY MD Unavailable Unavailable DEBONI, R ASHLEY MD Unavailable Unavailable DEBONI, R ASHLEY MD Unavailable Unavailable DEBONI, R ASHLEY MD Unavailable Unavailable DEBONI, R ASHLEY MD Unavailable Unavailable DEBONI, R ASHLEY MD Unavailable Unavailable DEBONI, R ASHLEY MD Unavailable Unavailable DEBONI, R ASHLEY MD Unavailable Unavailable DEBONI, R ASHLEY MD Unavailable Unavailable DEBONI, R ASHLEY MD Unavailable Unavailable DEBONI, R ASHLEY MD Unavailable Unavailable DEBONI, R ASHLEY MD Unavailable Unavailable DEBONI, R ASHLEY MD Unavailable Unavailable DEBONI, R ASHLEY MD Unavailable Unavailable DEBONI, R ASHLEY MD Unavailable Unavailable DEBONI, R ASHLEY MD Unavailable Unavailable DEBONI, R ASHLEY MD Unavailable Unavailable DEBONI, R ASHLEY MD Unavailable Unavailable DEBONI, R ASHLEY MD Unavailable Unavailable DEBONI, R ASHLEY MD Unavailable Unavailable DEBONI, R ASHLEY MD Unavailable Unavailable DEBONI, R ASHLEY MD Unavailable Unavailable DEBONI, R ASHLEY MD Unavailable Unavailable DEBONI, R ASHLEY MD Unavailable Unavailable DEBONI, R ASHLEY MD Unavailable Unavailable DEBONI, R SAHLEY MD Unavailable Unavailable DEBONI, R ASHLEY MD Unavailable Unavailable DEBONI, R ASHLEY MD Unavailable Unavailable DEBONI, R ASHLEY MD Unavailable Unavailable DEBONI, R ASHLEY MD Unavailable Unavailable DEBONI, R ASHLEY MD Unavailable Unavailable DEBONI, R ASHLEY MD Unavailable Unavailable DEBONI, R ASHLEY MD Unavailable Unavailable DEBONI, R ASHLEY MD Unavailable Unavailable DEBONI, R ASHLEY MD Unavailable Unavailable DEBONI, R ASHLEY MD Unavailable Unavailable DEBONI, R ASHLEY MD Unavailable Unavailable DEBONI, R ASHLEY MD Unavailable Unavailable DEBONI, R ASHLEY MD Unavailable Unavailable DEBONI, R ASHLEY MD Unavailable Unavailable DEBONI, R ASHLEY MD Unavailable Unavailable DEBONI, R ASHLEY MD Unavailable Unavailable DEBONI, R ASHLEY MD Unavailable Unavailable DEBONI, R ASHLEY MD Unavailable Unavailable DEBONI, R ASHLEY MD Unavailable Unavailable DEBONI, R ASHLEY MD Unavailable Unavailable DEBONI, R ASHLEY MD Unavailable Unavailable DEBONI, R ASHLEY MD Unavailable Unavailable DEBONI, R ASHLEY MD Unavailable Unavailable DEBONI, R ASHLEY MD Unavailable Unavailable DEBONI, R ASHLEY MD Unavailable Unavailable DEBONI, R ASHLEY MD Unavailable Unavailable DEBONI, R ASHLEY MD Unavailable Unavailable DEBONI, R ASHLEY MD Unavailable Unavailable DEBONI, R ASHLEY MD Unavailable Unavailable DEBONI, R ASHLEY MD Unavailable Unavailable DEBONI, R ASHLEY MD Unavailable Unavailable DEBONI, R ASHLEY MD Unavailable Unavailable DEBONI, R ASHLEY MD Unavailable Unavailable DEBONI, R ASHLEY MD Unavailable Unavailable MARCELINO, 0000{ Unavailable Unavailable Re-disclosure Warning The records that you are about to access may contain information from federally-assisted alcohol or drug abuse programs. If such information is present, then the following federally mandated warning applies: This information has been disclosed to you from records protected by federal confidentiality rules (42 CFR part 2). The federal rules prohibit you from making any further disclosure of this information unless further disclosure is expressly permitted by the written consent of the person to whom it pertains or as otherwise permitted by 42 CFR part 2. A general authorization for the release of medical or other information is NOT sufficient for this purpose. The Federal rules restrict any use of the information to criminally investigate or prosecute any alcohol or drug abuse patient.The records that you are about to access may contain highly sensitive health information, the redisclosure of which is protected by Article 27-F of the [facility] Public Health law. If you continue you may have access to information: Regarding HIV / AIDS; Provided by facilities licensed or operated by the [facility] Office of Mental Health; or Provided by the [facility] Office for People With Developmental Disabilities. If such information is present, then the following [facility] mandated warning applies: This information has been disclosed to you from confidential records which are protected by state law. State law prohibits you from making any further disclosure of this information without the specific written consent of the person to whom it pertains, or as otherwise permitted by law. Any unauthorized further disclosure in violation of state law may result in a fine or care home sentence or both. A general authorization for the release of medical or other information is NOT sufficient authorization for further disc losure. Family History Family Member Name Family Member Gender Family Member Status Date o f Status Description Data Source(s) Unknown Male Problem [facility] ([facility] [place]) Unknown Male Problem MEDENT ([facility]) Unknown Unknown Problem [facility] ([facility]) Encounters Encounter Providers Location Date Indications Data Source(s ) Attender: ASHLEY Bradley-LABMEDART 10/26/2020 10:54:42 AM [facility] Outpatient Referrer: ASHLEY Bradley-[facility] 10/26/2020 10:51:48 AM [facility] Attender: Osvaldo Randall MD 5F-FLCS 09/21/2020 09:59:51 A M [facility] Outpatient Attender: Leander Thomas Office 09/11/2020 10:30:00 A M EST [facility] ([facility]) Attender: Osvaldo Randall MD 5F-FLCS 09/05/2020 09:59:31 A M [facility] [address] [facility] [address] [address], Ph. Attender: Teresa Mcenill MD [facility] Office 08/18/2020 12:00:00 AM EST [facility] ([facility]) [facility]neill [facility] [address] [facility] [address] [place] [address], Ph. Attender: Teresa Mcneill MD [place] [facility] Office 08/18/2020 12:00:00 AM EST [facility] ([facility]) Outpatient Attender: Tereza Beth ANAESTHETIC TECHNICIAN-C 0 07:42:00 AM EST POLYDIPSIA ABNORMAL WEIGHT LOSS LEFT LOWER QUADRANT PAIN [facility] POLYDIPSIA ABNORMAL WEIGHT LOSS LEFT LOW ER QUADRANT PAIN Outpatient Attender: 0000{ [place] 07/24/2020 07:42:00 AM E [facility] Outpatient Attender: Osvaldo Randall MDReferrer: Osvaldo Randall MD 2E-SEUS 06/29/2020 08:42:35 AM EDT - 06/29/2020 11:59:00 PM EDT [facility] Patient discharged. First degree hemorrhoids 06/26/2020 12:00 :00 AM EDT Other specified diseases of esophagusFirst degree hemorrhoidsNauseaDiarrheaBloating symptom gMED ([facility]) Other specified diseases of esophagus First degree hemorrhoids Nausea Diarrhea Bloating symptom Attender: Osvaldo Randall MD 5F-FLCS 06/08/2020 01:33:00 P M EDT [facility] Outpatient Attender: ASHLEY HOLLOWAY MD Main Office 05/11/2020 11:15:00 AM EDT MEDENT ( [facility]) Outpatient Attender: Juan Romano DPMReferrer: Juan lombardo DPM 2E-RA 04/11/2020 10:33:57 AM EDT - 04/11/2020 11:59:00 PM EDT [facility] Patient discharged. Attender: Juan Romano DPM 5F-FLCS 04/06/2020 11:48: 26 AM EDT [facility] Attender: YUN CORONADO MD 2E-LABMEDART 03/21/2020 10:42:2 1 AM EDT [facility] OUTPATIENT Attender: YUN Rosserrer: YUN Flores MD 2E-LABMEDART 03/21/2020 10:40:00 AM EDT - 03/21/2020 11:59:00 PM EDT [facility] Patient discharged. Outpatient Attender: Leander Briceño DO [place] Office 03/16/2020 03:30:00 P M EDT [facility] ([facility]) ( in Healthcare facility) Attender: ASHLEY KRISHNAMURTHY MD 02/10/2020 06:47:00 AM EDT - 02/10/2020 06:15:00 PM EDT [facility] Outpatient Attender: ASHLEY KRISHNAMURTHY MDAdmitter: ASHLEY MCCRAY MD 02/10/2020 06:47:00 AM EDT - 02/10/2020 06:15:00 PM EDT [facility] Patient discharged. 11/10/2019 12:29:00 PM EDT [facility] 11/10/2019 10:09:22 AM EDT [facility] Emergency Attender: NICO ALEXANDRE MD -ER 11/09 09:08:31 AM EDT - 11/10/2019 02:12:00 PM EDT [facility] Patient discharged. Emergency Attender: NICO ALEXANDRE [place]-ER 11/10/2019 09:08:31 AM EDT [facility] Attender: [facility]UN [facility] 11/03/2019 09:47:50 AM EST [facility] Outpatient Attender: MIKE AGUILAR MDReferrer: YUN CORONADO MD [id number] 09/27/2019 12:00:00 AM EST - 09/27/2019 01:02:43 PM [facility] Outpatient Attender: Leander Briceño DO [place] Office 09/23/2019 12:15:00 P M EST [facility] ([facility]) Medications Medication Brand Name Start Date Product Form Dose Route Admi nistrative Instructions Pharmacy Instructions Status Indications Reaction Description Data Source(s) oxcarbazepine 150 MG Oral Tablet [Trileptal] Trileptal 05/11/2020 12:00:00 AM EDT ORAL active MEDENT ([facility]) 05/09/2020 12:00:00 AM EDT compl eted Suprep Bowel Prep Kit 17.5-3.13-1.6 gram recon soln gMED ([facility] 12 HR Orphenadrine Citrate 100 MG Extend ed Release Oral Tablet orphenadrine (NORFLEX) 100 mg 12 hr tablet orphenadrine (NORFLEX) 100 mg 12 hr tablet 11/10/2019 12:00:00 AM EDT 100 mg oral active Take 1 tablet (100 mg total) by mouth 2 (two) times a day if needed for muscle spasms for up to 10 days. Do not crush, chew, or split. [facility] Ibuprofen 800 MG Oral Tablet ibuprofen (ADVIL,MOTRIN) 800 mg tablet ibuprofen (ADVIL,MOTRIN) 800 mg tablet 11/10/2019 12:00:00 AM EDT 800 mg oral active Take 1 tablet (800 m g total) by mouth every 8 (eight) hours if needed for moderate pain. [facility] Aim[employer]ig Aimovig 10/04/2019 12:00:00 AM EST active MEDENT ([employer] [facility]) Dextran 70 1 MG/ML / hypromellose 3 MG/M L Ophthalmic Solution dextran 70- hypromellose, PF, (BION TEARS) 0.1-0.3 % ophthalmic solution dextran 70- hypromellose, PF, (BION TEARS) 0.1-0.3 % ophthalmic solution 07/05/2019 12:00:00 AM EST 1 [drp] Left Eye active Adminis ter 1 drop into the left eye 3 (three) times a day if needed for dry eyes. [facility] Acetaminophen 325 MG / Hydrocodone Kilo trate 10 MG Oral Tablet HYDROcodone- acetaminophen (VICODIN) 10-325 MG per tablet HYDROcodone-acetaminophen (VICODIN) 10-325 MG per tablet 10/30/2016 12:00:[address] [facility] Cyclobenzaprine hydrochloride 10 MG Oral Tablet cyclobenzaprine 10 mg tablet TAKE 1 TABLET BY MOUTH EVERY DAY AT BEDTIME cyclobenzaprine 10 mg tablet TAKE 1 TABLET BY MOUTH EVERY DAY AT BEDTIME c ompleted cyclobenzaprine hydrochloride 10 MG Oral Tablet [facility] ([facility]) Clindamycin 300 MG Oral Capsule clindamycin HCl 300 mg capsule TK 1 C PO TID clindamycin HCl 300 mg capsule TK 1 C PO TID completed clindamycin 300 MG Oral Capsule [facility] ([facility]) oxcarbazepine completed oxcarb azepine [facility] ([facility]) 12 HR Carbamazepine 200 MG Extended Rele ase Oral Tablet carbamazepine ER 200 mg tablet,extended release,12 hr carbamazepine ER 200 mg tablet,extended release,12 hr completed 12 HR c arbamazepine 200 MG Extended Release Oral Tablet [facility] ([facility]) topiramate 25 MG Oral Capsule topiramate 25 mg sprinkle capsule Take 2 capsules twice a day by oral route. topiramate 25 mg sprinkle capsule Take 2 capsules twice a day by oral route. 2 capsule(s) compl eted topiramate 25 MG Oral Capsule [facility] ([facility]) Ondansetron 4 MG Oral Tablet ondansetron HCl 4 mg tabl et ondansetron HCl 4 mg tablet completed ondansetron 4 M G Oral Tablet [facility] ([facility]) 12 HR Orphenadrine Citrate 100 MG Extend ed Release Oral Tablet orphenadrine citrate ER 100 mg tablet,extended release TAKE 1 TABLET BY MOUTH TWICE DAILY NEEDED FOR MUSCLE SPASMS FOR UP TO 10 DAYS. DO NOT CRUSH CHEW OR SPLIT. orphenadrine citrate ER 100 mg tablet,extended release TAKE 1 TABLET BY MOUTH TWICE DAILY NEEDED FOR MUSCLE SPASMS FOR UP TO 10 DAYS. DO NOT CRUSH CHEW OR SPLIT. completed 12 HR o rphenadrine citrate 100 MG Extended Release Oral Tablet [facility] ([facility]) Fluoxetine 40 MG Oral Capsule fluoxetine 40 mg capsule 4 0 mg completed fluoxetine 40 mg capsule gMED ([facility]) UNABLE TO FIND aborted Two Times Daily Med Name: facial nerve pain [facility] Ondansetron 4 MG Oral Tablet ondansetron HCl 4 mg tabl et ondansetron HCl 4 mg tablet completed ondansetron 4 M G Oral Tablet [facility] ([facility]) Acetaminophen 325 MG / Hydrocodone Kilo trate 5 MG Oral Tablet hydrocodone 5 mg- acetaminophen 325 mg tablet hydrocodone 5 mg-acetaminophen 325 mg tablet completed acetaminophen 325 MG / hydrocodone bitartrate 5 MG Oral Tablet [facility] ([facility]) 12 HR Orphenadrine Citrate 100 MG Extend ed Release Oral Tablet orphenadrine citrate ER 100 mg tablet,extended release TAKE 1 TABLET BY MOUTH TWICE DAILY NEEDED FOR MUSCLE SPASMS FOR UP TO 10 DAYS. DO NOT CRUSH CHEW OR SPLIT. orphenadrine citrate ER 100 mg tablet,extended release TAKE 1 TABLET BY MOUTH TWICE DAILY NEEDED FOR MUSCLE SPASMS FOR UP TO 10 DAYS. DO NOT CRUSH CHEW OR SPLIT. completed 12 HR o rphenadrine citrate 100 MG Extended Release Oral Tablet [facility] ([facility]) Zolpidem tartrate 5 MG Oral Tablet zolpidem 5 mg tablet 5 mg completed zolpidem 5 mg tablet gMED ([facility]) topiramate 25 MG Oral Capsule topiramate 25 mg sprinkle capsule Take 2 capsules twice a day by oral route. topiramate 25 mg sprinkle capsule Take 2 capsules twice a day by oral route. 2 capsule(s) compl eted topiramate 25 MG Oral Capsule [facility] ([facility]) lidocaine 5 % medicated patch and dimethicone 5 % topical cream [id number] completed lidocaine 5 % m edicated patch and dimethicone 5 % topical cream [facility] ([facility]) oxcarbazepine completed oxcarb azepine [facility] ([facility]) dextrose 5 % SOLN 250 mL with calcium di sodium versenate 1 GM/5ML SOLN 50 mg/kg/day 50 mg aborted 50 mg Tw o Times Daily [facility] Clindamycin 300 MG Oral Capsule clindamycin HCl 300 mg capsule TK 1 C PO TID clindamycin HCl 300 mg capsule TK 1 C PO TID completed clindamycin 300 MG Oral Capsule [facility] ([facility]) lidocaine 5 % medicated patch and dimethicone 5 % topical cream [id number] completed lidocaine 5 % m edicated patch and dimethicone 5 % topical cream [facility] ([facility]) Acetaminophen 325 MG / Hydrocodone Kilo trate 5 MG Oral Tablet hydrocodone 5 mg- acetaminophen 325 mg tablet hydrocodone 5 mg-acetaminophen 325 mg tablet completed acetaminophen 325 MG / hydrocodone bitartrate 5 MG Oral Tablet [facility] ([facility]) Cyclobenzaprine hydrochloride 10 MG Oral Tablet cyclobenzaprine 10 mg tablet TAKE 1 TABLET BY MOUTH EVERY DAY AT BEDTIME cyclobenzaprine 10 mg tablet TAKE 1 TABLET BY MOUTH EVERY DAY AT BEDTIME c ompleted cyclobenzaprine hydrochloride 10 MG Oral Tablet [facility] ([facility]) tramadol completed tramadol AT [facility] ([facility]) 12 HR Carbamazepine 200 MG Extended Rele ase Oral Tablet carbamazepine ER 200 mg tablet,extended release,12 hr carbamazepine ER 200 mg tablet,extended release,12 hr completed 12 HR c arbamazepine 200 MG Extended Release Oral Tablet [facility] ([facility]) tramadol completed tramadol AT [facility] ([facility]) Insurance Providers Payer name Policy type / Coverage type Policy ID Covered libertarian ID Covered libertarian's relationship to barrios Policy Barrios Plan Information RUSSEL [id number] SP [id number] RUSSEL [id number] Self [id number] [place]ARE [place] [id number] S [id number] HEA [id number] RUSSEL CARE A [id number] S [id number] RUSSEL [id number] OTHER HEA S RUSSEL [id number] Self [id number] RUSSEL I [id number] Self [id number] RUSSEL I [id number] Self [id number] RUSSEL I [id number] Self [id number] [place] Commercial [id number] Self [id number] Russel Commercial [id number] Self [id number] [place] Commercial [id number] Self [id number] Russ[place] Medicaid Commercial [id number] Self [id number] [place] Medicare Advant[place] Commercial [id number] Self [id number] SPECIAL ACCOUNT (8) UNAVAILABLE UNAVAILABLE MEDICAID (101) [id number] RUSSEL (192) [id number] [place] Medicare Advantge Commercial [id number] Self [id number] [place] Care [place] Commercial [id number] Self [id number] RUSSEL [id number] Patient [id number] [place] Medicare Advantge Commercial [id number] Self [id number] Russ[place] Medicare Advantge Commercial [id number] Self [id number] [place] Medicare Advantge Commercial [id number] Self [id number] [place] Commercial [id number] Self [id number] UNAVAILABLE UNAVAILA BLE MEDICAID GME [id number] S [id number] [place] Medicare Advantge Commercial [id number] Self [id number] [place] Medicare Advantge Commercial [id number] Self [id number] [place]vant[place] Commercial [id number] Self [id number] [place] Policy 0 Self 0 [place] Individual Policy 0 Self 0 [place] Individual Policy 0 Self 0 [place] Individual Policy 0 Self 0 [place] Individual Policy 0 Self 0 [place] Individual Policy 0 Self 0 [place] Individual Policy 0 Self 0 [place] Individual Policy 0 Self 0 [place] Individual Policy 0 Self 0 [place] Individual Policy 0 Self 0 [place] Policy 0 Self 0 [place] Policy 0 Self 0 [place] Policy 0 Self 0 [place] Policy 0 Self 0 [place] Individual Policy 0 Self 0 [place] Individual Policy 0 Self 0 [place] Individual Policy 0 Self 0 [place] Individual Policy 0 Self 0 [place] Individual Policy 0 Self 0 RUSSEL [id number] Patient [id number] MEDICAID (101) [id number] 92Y RUSSEL [id number] Patient [id number] RUSSEL [facility] 201) [id number] SELF PAY SELF PAY Patient SELF PAY MEDICAID [id number] Patient [id number] Problems, Conditions, and Diagnoses Code Display Name Description Problem Type Effective Dates Data Source(s) 310851163 Genetic finding Genetic Finding Problem 08/18/2020 12:0 0:00 AM EST [facility] ([facility]) [id number] Genetic finding Genetic Finding Problem 08/18/2020 12:0 0:00 AM [facility] ([facility]) [id number] Trigeminal neuralgia Trigeminal neuralgia Problem 05/11/2020 12:00:00 AM EDT MED[facility] ([facility]) [id number] Lumbosacral spondylosis without myelopat hy Lumbosacral spondylosis without myelopathy Problem 03/16/2020 12:00:00 AM EDT [facility] ([facility]) E04.1 Nontoxic single thyroid nodule Nontoxic single thyroid nodule Diagnosis 06/29/2020 08:42:35 AM EDT [facility] M77.31 Calcaneal spur, right foot Calcaneal spur, right foot Diagnosis 04/11/2020 10:33:57 AM EDT [facility] M21.961 Unspecified acquired deformity of right lower leg Unspecified acquired deformity of right lower leg Diagnosis 04/11/2020 10:33:57 AM EDT [facility] M21.962 Unspecified acquired deformity of left l ower leg Unspecified acquired deformity of left lower leg Diagnosis 04/11/2020 10:33:57 AM EDT [facility] R93.89 Abnormal findings on diagnos tic imaging of other specified body structures Abnormal findings on diagnostic imaging of other specified body structures Diagnosis 03/21/2020 10:40:01 AM EDT [facility] M54.12 Radiculopathy, cervical region Radiculopathy, cervical region Diagnosis 11/10/2019 09:08:31 AM EDT [facility] 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, unspec ified cervical region Other cervical disc displacement, unspecified cervical region Diagnosis 11/10/2019 09:08:31 AM EDT [facility] Numbness Numbness Diagnosis 11/10/2019 09:08:31 AM ED T [facility] left sided body numbness left sided body numbness Diag nosis 11/10/2019 08:53:00 AM EDT [facility] Surgeries/Procedures Procedure Description Date Indications Data Source(s) US SOFT TISSUE HEAD & NECK REAL TIME IMGE DOCMTN US HEAD NE CK SOFT TISSUE Routine 06/29/2020 9:20 AM EDT Nontoxic single thyroid nodule 06/29/2020 01:20:00 PM EDT No ntoxic single thyroid nodule [facility] Nontoxic single thyroid nodule EGD 06/26/2020 12:00:00 AM EDT g MED ([facility]) CT Scan 06/26/2020 12:00:00 AM EDT g MED ([facility]) RADEX FOOT COMPLETE MINIMUM 3 VIEWS XR FOOT 3+ VIEWS BILATERAL Routine 04/11/2020 10:52 AM EDT Unspecified acquired deformity of left lower leg Unspecified acquired deformity of right lower leg Calcaneal spur, right foot 04/11/2020 02:52:12 PM EDT Cal[place] eal spur, right footUnspecified acquired deformity of right lower legUnspecified acquired deformity of left lower leg [facility] Calcaneal spur, right foot Unspecified acquired deformity of right lower leg Unspecified acquired deformity of left l ower leg Graft of Skin to Skin 02/10/2020 12:00:00 AM EDT [facility] ([facility]) Graft of Skin to Skin 02/10/2020 12:00:00 AM EDT [facility] ([facility]) MRI BRAIN BRAIN STEM W/O &W/CONTRAST MATERIAL MRI BRAIN W WO CO NTRAST STAT 11/10/2019 11:37 AM EDT 11/10/2019 03:37:07 PM EDT [facility] MRI SPINAL CANAL CERVICAL W/O & W/CONTR MATRL MRI CERVICAL SPINE W WO CONTRAST STAT 11/10/2019 11:32 AM EDT 11/10/2019 03:32:45 PM EDT [facility] PT ON THERAPY PT ON THERAPY STAT 11/10/2019 9:55 AM EDT 11/10/2019 01:55:00 PM EDT [facility] CBC AND DIFFERENTIAL CBC AND DIFFERENTIAL STAT 11/10/2019 9:55 AM EDT 11/10/2019 01:55:00 PM EDT [facility] COMPREHENSIVE METABOLIC PANEL COMPREHENSIVE METABOLIC PANEL STA T 11/10/2019 9:55 AM EDT 11/10/2019 01:55:00 PM EDT [facility] Results ID Date Data Source [id number] 07/24/2020 10:25:00 AM GERSON Timmons de DATE OF EXAM: 07/24/2020 MRI ABDOMEN WIT HOUT AND WITH IV CONTRAST/MRCP CLINICAL HISTORY: Polydipsia Abnormal weight loss Left lower quadrant pain COMPARISON: None TECHNIQUE: Multisequence, multiplanar MRI images were obtained of the abdomen without and with contrast. T2-weighted 3D images of the biliary tree were made. CONTRAST: 10 mL ProHance IV contrast from a 10 mL bottle. FINDINGS: Some exam limitations related to respiratory motion artifact. Lung bases: Unremarkable. Liver: Normal in size and configuration. No focal hepatic lesion is seen. Bile Ducts: No intrahepatic or extrahepatic bile duct dilation is noted. Gallbladder: Normal. Pancreas and Pancreatic Duct: Bilobed 4 x 7 mm cystic lesion in the superior aspect of the pancreatic head (series 3, image 16 and series 9, image 4). No associated enhancement. No main duct dilation. The pancreas is otherwise normal appearance. Spleen: Normal. Adrenal Glands: Normal. Kidneys: Normal. Peritoneum/Mesentery/Omentum: Normal. Lymph Nodes: No abdominal lymphadenopathy is seen. Visualized Bowel: Grossly normal. Vessels: Normal in caliber. Bones: Artifact related to thoracic spinal fusion hardware. IMPRESSION: 1. No acute findings in the abdomen.2. Subcentimeter cystic lesion in the pancreatic head without suspicious enhancement or main duct dilation. Per ACR incidental findings committee guidelines, recommend follow-up with MRI/MRCP in one year to ensure stability. Professional interpretation performed at [facility] .End of diagnostic report for accession: [id number] Interpreted: Juana Salinas MDTranscribed: 07/24/2020 10:14 AMSigned: 07/24/2020 10:25 AM Juana Salinas MD [facility] # [id number] BILL # [id number] 2MEM Name Value Range Interpretation Code Description Data Azalea rce(s) Supporting Document(s) ID Date Data Source [id number] 07/24/2020 08:45:00 AM GERSON Timmons al DATE OF EXAM: 07/24/2020TRANSVAGINAL ULT RASOUND INDICATIONS: Left lower quadrant pain COMPARISONS: None TECHNIQUE: Multiple real time scans through the pelvis were performed transvaginally FINDINGS: The uterus is retroverted, measuring 8.6 x 4.7 x 4.6. The endometrium is normal, measuring 5.7 mm AP. The right ovary is normal, measuring 2.3 x 1.6 x 1.3. Normal color flow. The left ovary is normal, measuring 1.7 x 1.3 x 2.2 cm, with a 1 cm follicle. 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 This may be a source of discomfort, correlate with any clinical signs of pelvic congestion syndrome. No free fluid in the cul-de-sac is identified. IMPRESSION: Asymmetric left dilated gonadal varices, correlate with any clinical signs of pelvic congestion syndrome. No myometrial or endometrial abnormality. Professional interpretation performed by DIRECTOR SALES [facility] at [facility] End of diagnostic report for accession: [id number] Interpreted: Edgar Youssef MDTranscribed: 07/24/2020 08:41 AMSigned: 07/24/2020 08:45 AM Edgar Youssef MD [facility] ACC # [id number] BILL # [id number] 2MEM Name Value Range Interpretation Code Description Data Azalea rce(s) Supporting Document(s) ID Date Data Source [id number] 06/29/2020 09:40:03 AM EDT [facility] Patient: FLY CARIAS : 1975 [facility] N[facility]K SOFT TISSUE Provider: OSVALDO CHAHFECLINICAL HISTORY: Nontoxic single thyroid noduleTECHNIQUE: Multiple sonographic images obtained in various planes COMPARISON: 05/10/2019FINDINGS:Right ThyroidLobeThe right lobe measures L: 3.76 cm x W: 0.94 cm x H: 1.34 cm.The right lobe appears heterogeneous with a single nodule.Hypoechoic nodule mid 0.3 x 0.2x 0.4cm (prior sono 0.3 x 0.4x 0.4cm)There is normal color flow within the right lobe of the thyroid.Left ThyroidLobeThe left lobe measures L: 3.64 cm x W: 1.25 cm x H: 1.08 cm.The left lobe appears heterogeneous with multiple nodules.Largest two measured1) medial mid hypoechoic 0.3 x 0.2x 0.2cm (prior sono 0.3 x 0.2x 0.2cm)2) inferior hyperechoic nodule with color flow 0.5 x 0.4x 0.3cmThere is normal color flow within the left lobe of the thyroid.Isthmus The isthmus is heterogeneous without focal nodules.The isthmus measures 2.7 mm.Soft Tissue Neck bilateral lymph nodeslargest right 0.9 x 0.8x 0.2cmlargest left 1.4 x 0.8 x 0.3cmIMPRESSION: NO CHANGE BILATERAL 3 MM NODULES. IN THE LEFT LOBE, MULTIPLENODULES, THE LARGEST MEASURING 5 MM. CERVICAL LYMPH NODES INDICATEDElectronically Signed by Mohit Bey MD 06/29/2020 9:40 AM Name Value Range Interpretation Code Description Data Azalea rce(s) Supporting Document(s) ID Date Data Source [id number] 06/21/2020 12:55:00 PM EDT [facility] Name Value Range Interpretation Code Description Data Azalea rce(s) Supporting Document(s) SARS coronavirus 2 RNA [facility] This lab was ordered by [facility] and reported by [facility]. ID Date Data Source [id number] 06/22/2020 10:09:54 AM EDT [facility] Name Value Range Interpretation Code Description Data Azalea rce(s) Supporting Document(s) SARS-COV-2 [place] [facility] Not DetectedReference range: Not Detecte d This nucleic acid amplification test was developed and its performance characteristics determined by [employer]. Nucleic acid amplification tests include PCR and TMA. This test has not been FDA cleared or approved. This test has been authorized by FDA under an Emergency Use Authorization (EUA). This test is only authorized for the duration of time the declaration that circumstances exist justifying the authorization of the emergency use of in vitro diagnostic tests for detection of SARS-CoV-2 virus and/or diagnosis of COVID-19 infection under section 564(b)(1) of the Act, 21 U.S.C. 360bbb-3(b) (1), unless the authorization is terminated or revoked sooner. When diagnostic testing is negative, the possibility of a false negative result should be considered in the context of a patient's recent exposures and the presence of clinical signs and symptoms consistent with COVID- 19. An individual without symptoms of COVID- 19 and who is not shedding SARS -CoV-2 virus would expect to have a negative (not detected) result in this assay. Performed At: [address] [id number] Sav Carolina MD Ph:[id number] ID Date Data Source [id number] 05/23/2020 12:00:00 AM EDT [facility] ([facility], /[facility] Name Value Range Interpretation Code Description Data Azalea rce(s) Supporting Document(s) LACNY C Diff Stool SENT -- LACNY C Diff Stoo l gMED ([facility], /[facility]) LACNY Fecal Calprotectin SENT -- LACNY Fecal Calprotectin [facility]MED ([facility], /[facility]) LACNY Enteric Pathogens By PCR, Stool SENT -- LACNY Enteric Pathogens By PCR, Stool [facility]MED ([facility], /[facility]) LACNY STOOL FOR ELASTASE SENT -- LACNY STOOL FOR ELASTASE gMED ([facility], /[facility]) ID Date Data Source [id number] 04/11/2020 11:45:18 AM EDT [facility] Patient: FLY CARIAS : 1975 [facility]ACS [facility] 3+ VIEWS BILATERAL Provider: JUAN ENRIQUEZ RADIOGRAPHHISTORY: Female 45 years old. Preoperative evaluation for bilateral footsurgery. Extra bone growth is causing swelling/pain. History of bone spursthroughout the thoracic spine. Pain in the posterior aspect of the right heeland lateral aspect of the left foot. Unspecified number of months duration.Moderate intensity. No reported trauma. Initial encounter. TECHNIQUE:4 radiographic images of each foot.. Total of 8 radiographic images.COMPARISON: None. FINDINGS:Unremarkable bony mineralization. No concerning osseous lesions. Tiny osteophytic spur of the plantar aspect of the left calcaneus.Preserved joint spaces.No fracture, subluxation or dislocation. Unremarkable soft tissues. No evident joint effusion.No radiopaque foreign body identified. OTHER: Not applicable. IMPRESSION: NO ACUTE FIN DINGS.ANY NONACUTE FINDINGS DESCRIBED.Electronically Signed by Harinder Ng MD 04/11/2020 11:45 AM Name Value Range Interpretation Code Description Data Azalea rce(s) Supporting Document(s) ID Date Data Source [id number] 03/23/2020 01:31:00 PM EDT [facility] Name Value Range Interpretation Code Description Data Azalea rce(s) Supporting Document(s) CEA 2.8 ng/ml 0.0-3.0 Normal (applies to non-numeric resul ts) [facility] The CEA is performed using the Siemens Immulite XPI 2000 assaymethodology. Sequential comparative analyses should be performed using the samemethod since results obtained from different methods are notinterchangeable. The CEA assay should not be used as a cancer screeningtest and should not be interpreted as evidence of the presence orabsence of malignant disease.Biotin concentrations of >2 ng/mL have been shown to falsely elevateresults. CEA Frequency First specimen [facility] The above 2 analytes were performed by Sarthak Aceves [facility] [id number] [place] [address],[facility] [id number],[place] [address] ID Date Data Source [id number] 03/21/2020 02:23:00 PM EDT [facility] Name Value Range Interpretation Code Description Data Azalea rce(s) Supporting Document(s) CA 19-9 5.82 U/ml 0.0-35.0 Normal (applies to non-numeric resul ts) [facility] Testing performed on the Siemens Centuar -XP.Sequential comparative analyses should be performed using the sameanalyzer type since results obtained fromdifferent analyzer type are not interchangeable. Results cannot beinterpreted as absolute evidence of the presenceor absense of malignant disease. CA 19-9 Frequency First specimen [facility] The above 2 analytes were performed by Sarthak samara Aceves [facility] [id number] [place] [address], ,[place] [address] ID Date Data Source [id number] 03/21/2020 02:23:00 PM EDT [facility] Name Value Range Interpretation Code Description Data Azalea rce(s) Supporting Document(s) CA 125 4.70 U/ml 0.0-30.2 Normal (applies to non-numeric resul ts) [facility] Testing performed on the Siemens Centuar -XP.Sequential comparative analyses should be performed using the sameanalyzer type since results obtained fromdifferent analyzer type are not interchangeable. Results cannot beinterpreted as absolute evidense of the presenceor absence of malignant disease. CA-125 Frequency First specimen [facility] The above 2 analytes were performed by [facility] [id number] [place] [address], ,[place] [address] ID Date Data Source [id number] 03/28/2020 10:00:00 AM EDT [facility] [id number] [place], [place] [address]KYVKMWH NAME: JESUS CARIAS OF : 1975REPORT: OPERATIONPATIENT NUMBER: [id number] STATUS: SDMEDICAL RECORD NUMBER: [id number] OF ADMISSION: 02/10/2020DATE OF DISCHARGE: 02/10/2020DATE OF PROCEDURE: 02/10/2020SURGEON: YOCASTA GuamanREOPERATIVE DIAGNOSIS: Asymmetry of bilateral breasts.POSTOPERATIVE DIAGNOSIS: Asymmetry of bilateral breasts.OPERATIVE PROCEDURE: Autologous fat grafting of bilateral breasts forcorrection of asymmetry.ANESTHESIA: General.ES TIMATED BLOOD LOSS: Approximately 100 cc.FLUIDS: Crystalloid.INTRAOPERATIVE COMPLICATIONS: None.INDICATIONS: The patient is a 44-year-old female who is status post priorbreast augmentation by another surgeon. She initially had saline implantsyears ago which she had no problems with. She then had a saline implantrupture on one side and was replaced by another surgeon with siliconeimplants. The patient was having significant pain which she felt wasattributable to her implants. After multiple discussions, she eventuallyhad the implants removed. She states that she had almost immediateresolution of her symptoms. She felt that these were likely related to hersilicone implants. She healed and then presented with breast asymmetrywith the right breast being moderately smaller than the left. She hasdeflation, but no true ptosis. After discussing multiple options, weelected to proceed with autologous fat grafting to reconstruct the breastsand achieve better symmetry. We planned preferential injection into theright small addressed with a matching amount in the left side just toachieve symmetry. In extensive, we discussed the fat grafting procedureand that it is not unlikely that secondary rounds of fat grafting may beneeded to achieve ultimate volume. The partial or total resorption of fatwas discussed.Risks were detailed which include but are not to limited to: Bleeding,infection, scarring, asymmetry, contour deformity, partial total fatresorption, fat necrosis, oil cysts, skin breakdown, contour irregularitiesin donor sites or the need for further procedures. She understands andaccepts this.PROCEDURE: The patient was identified and marked in the anesthesia holdingarea. We planned aspiration of fat from both posteriorly and anteriorly. She was then brought to the operating suite and placed under generalanesthesia. She was placed prone on an operating room table with allpressure points padded. Tumescent fluid was injected into the posteriorabdomen and flanks. After allowing adequate time for effect,pulse-assisted liposuction with the revolve fat harvest system was utilizedto harvest fat posteriorly. Once we had optimized the amount of fat to beremoved from the back, access sites were closed. The patient was thenplaced supine on the operating room table and all pressure points padded. She was sterilely prepped and draped anteriorly. Continued aspiration ofthe anterior abdomen was then performed. The fat was refined using [employer] fat harvest system yielding approximately 700 cc of excellentquality usable fat.The fat was placed into 10 cc microinjection cannulas and using [id number] injection cannulas, both breasts were augmented using the refinedfat. A total of 650 cc of fat was injected between the two breasts. Approximately 400 cc in the right and 250 cc on the left was placed. Ifelt this was the maximum amount I can safely place without overtaxing theskin and risking increased fat necrosis. Excellent improvement in volumewas noted. Access sites were all closed. A compressive dressing wasapplied. The patient was then extubated, awakened, and brought to therecovery room in satisfactory condition.DICTATED BY: Ashley Krishnamurthy, MDDictated: 02/29/2020 10:28DT: 02/29/2020 10:33Job #: [id number]: [facility] computer generated reports are not confirmed orauthenticated unless they are signed by the providerElectronically Authenticated by:ASHLEY KRISHNAMURTHY MD On 03/28/2020 10:00 AM EDT Name Value Range Interpretation Code Description Data Azalea rce(s) Supporting Document(s) ID Date Data Source [id number] 02/07/2020 12:18:00 PM EDT [facility] Name Value Range Interpretation Code Description Data Azalea rce(s) Supporting Document(s) SARS Coronavirus RNA [facility] This lab was ordered by [facility] and reported by [facility] [employer] agricultural sales [employer]. ID Date Data Source [id number] 11/10/2019 02:03:07 PM EDT [facility] Name Value Range Interpretation Code Description Data Azalea rce(s) Supporting Document(s) ED Provider Notes [facility] [id number] [facility] [file] [id number] ID Date Data Source [id number] 11/10/2019 12:30:11 PM EDT [facility] agnetic Imaging Head MRICLINICAL HISTORY:Weakness and nu mbness on the left side for 2 weeks worsening, history oftrigeminal neuralgia.COMPARISON STUDY:CT head July 05, 2019TECHNIQUE: Multisequence multiecho routine unenhanced images including axial diffusionweighted , FLAIR, T2 and sagittal T1 images. Gadolinium: 6 mL intravenous Gadavist administered.FINDINGS: CEREBRAL HEMISPHERES: No hemorrhage, shift or mass effect. No restricteddiffusion or typical features of demyelinating disease. No paramagneticartifact is seen. No hydrocephalus is seen.No involutional changes of the cerebral cortex. POSTERIOR FOSSA:The brainstem, and cervical cord show no suspicious signal. NoChiari malformation or cystic collection is seen. No cerebellar atrophy. EXTRA-AXIAL SPACE: No abnormal collections are seen. There is no enhancement inthe Meckel's cave region.BASAL CISTERNS: No effacement or abnormal fluid collection.SKULL BASE STRUCTURES: No evidence for bone destruction. Normal size of sellaturcica, and there is no obvious sellar region mass. No aneurysm seen at theskull base flow- voids.ORBITS: Appearance grossly symmetric, without obvious mass.PARANASAL SINUSES: Paranasal sinuses are clear.MASTOIDS: No abnormal signal intensity seen.IMPRESSION: There is no restricted diffusion or active intracranial ischemia. No abnormalintra-axial or dural-based enhancement. Specifically the fifth, seventh, andeighth cranial nerves are unremarkable. There is normal thakkar-whitedifferentiation without any deep white matter signal irregularity. No evidenceof demyelinating disease.Report edited for Ashley Mercado 11/10/2019 12 :15 PM Electronically Signed by Ashley Mercado 11/10/2019 12:30 PM Name Value Range Interpretation Code Description Data Azalea rce(s) Supporting Document(s) ID Date Data Source [id number] 11/10/2019 11:49:45 AM EDT [facility] MRI CERVICAL SPINECLINICAL HISTORY: Head and neck pain unable to move head left arm pain weaknessand numbness and tingling left facial swelling and tingling severe neck lewis and radiculopathy, hx of fusion on the neck TECHNIQUE: Sagittal T1, sagittal T2, sagittal Proton density, IR, and axialT2-weighted images were obtained through the cervical spine. Pre andpostcontrast imaging performed with 6 mL of Gadavist COMPARISON: Cervical spine MRI 07/14/2018FINDINGS:Patient is status post anterior fusion at C6-7. No abnormal enhancement isseen.SOFT TISSUE FINDINGS: No prevertebral edema. There is no ep idural soft tissuemass. POSTERIOR FOSSA: There is no gross pathology within the posterior fossa.Craniocervical junction is intact.CORD: There is no focal cord lesion or syrinx.MARROW SIGNAL: No focal osseous lesions are noted.There is no fracture.VERTEBRAL BODY HEIGHTS: Vertebral body heights are well- maintained.INTERVERTEBRAL DISC SPACES: Intervertebral disc spaces are well- maintainedthroughout. There is no disc desiccation.ALIGNMENT: There is no subluxation.DISC LEVELS:At the atlantodens level,canal is widely patent.At C2-3 level, there is no disc protrusion. There is no spinal stenosis, lateralrecess, or foraminal narrowing.At C3-4 level, there is no disc protrusion. There is no spinal stenosis,lateral recess, or foraminal narrowing.At C4-5 mild posterior disc bulging is mild attenuation of ventral thecal sac.At C5-6 posterior disc bulging and a small right paracentral disc protrusion isseen. There is minimal effacement of ventral thecal sac without cordcompression. No significant neural foraminal narrowing is seen. At C6-7 level, there is no disc protrusion. There is no spinal stenosis,lateral recess, or foraminal narrowing.At C7-T1 level, there is no disc protrusion. There is no spinal stenosis,lateral recess, or foraminal narrowing.IMPRESSION: Degenerative spondylosis as described. Posterior disc bulging and rightparacentral disc protrusion at C5-6 with minimal effacement of ventral thecalsac without cord compression.Status post anterior fusion C6-7. This appears unchanged from prior study.Please see above for individual levels described in detail.Electronically Signed by Dr Victor Hugo Gonzales MD 11/10/2019 11:49 AM Name Value Range Interpretation Code Description Data Azalea rce(s) Supporting Document(s) ID Date Data Source [id number] 11/10/2019 10:32:00 AM EDT [facility] Name Value Range Interpretation Code Description Data Azalea rce(s) Supporting Document(s) AST 11 IU/L 15-37 Below low normal [facility] Sulfasalazine and sulfapyridine have the potential to falsely depressAspartate Aminotransferase results. Baseline values before medication administration are recommended. ALT 28 IU/L 13-56 Normal (applies to non-numeric resul ts) [facility] Sulfasalazine and sulfapyridine have the potential to falsely depressAlanine Aminotransferase results. Baseline values before medication administration are recommended. Alkaline Phosphatase 72 mIU/ml 50-136 Normal (applies to non-num michelle results) [facility] Total Bilirubin 0.40 mg/dl 0.20-1.00 Normal (applies to non-numeric results) [facility] Blood Urea Nitrogen 13 mg/dl 7-18 Normal (applies to non-nume thomas results) [facility] Creatinine 0.66 mg/dl 0.51-0.95 Normal (applies to non-numeric resul ts) [facility] N-Acetylcysteine (NAC) and Metamizole nava ve the potential to falselydepress Creatinine results. Baseline values before medication adminstration are recommended. Patients undergoing treatment with phenindione will have falselydepressed results. Patients on phenindione therapy should be tested with an alternativeCREA method. Glomerular Filtration Rate >90.00 mL/min/1.73m2 [facility] GFR Reference Ranges:Normal Function or Mild Renal Disease,if clinically at risk:>or= 60Moderately decreased:30 - 59Severely decreased:15 - 29Renal Failure:<15 Please note that the MDRD equation requires an additional adjustment forAfrican-Americans (multiply the GFR result by 1.210).Glomarular Filtration Rate (GFR) is estimated based on the MDRDequation, which assumes a steady state for creatinine (Candace Int Med 139/2 137-149, 2002), as recommended by the Nationaldney Disease Education Program in conjunction with the National Institutes of Health and the National KidneyFoundation. The [place] method used in calculating this result is traceable to IDMS standards. Glucose 98 mg/dl 70-110 Normal (applies to non-numeric resul ts) [facility] Sulfasalazine has the potential to false ly depress Glucose results. Sulfapyridine has the potential to falsely elevate Glucose results. Baseline values before medication administration are recommended. Calcium 9.4 mg/dl 8.5-10.1 Normal (applies to non-numeric resul ts) [facility] Total Protein 7.7 g/dl 6.4-8.2 Normal (applies to non-numeric re sults) [facility] Albumin 3.7 g/dl 3.4-5.0 Normal (applies to non-numeric resul ts) [facility] Sodium 140 mEq/L 136-145 Normal (applies to non-numeric resul ts) [facility] Potassium 3.9 mEq/L 3.5-5.1 Normal (applies to non-numeric resul ts) [facility] Chloride 109.0 mEq/L 98.0-107.0 Above high normal [facility] Anion Gap 7.9 [facility] Carbon Dioxide 27.0 mMol/L 21.0-32.0 Normal (applies to non-numeric results) [facility] The above 16 analytes were performed by [facility] [id number], ,[place] [address] ID Date Data Source [id number] 11/10/2019 10:25:00 AM EDT [facility] Name Value Range Interpretation Code Description Data Azalea rce(s) Supporting Document(s) PT,Patient (on Anticoag. Therapy) 10.0 Seconds 10.1-11.3 Below low n ormal [facility] Discrepant results may occur due to anti coagulant effects such ascoumadin, direct thrombin inhibitors; argatroban (Acova), bivalirudin(Angiomax) or dabigatran (Pradaxa) or direct factor Xa inhibitors;rivaroxaban (Xarelto), apixaban (Eliquis) and edoxaban (Savaysa). INR (on Anticoagulant Therapy) 0.9 2.0-3.5 Below low normal [facility] International Normalized Ratio ( INR)Indications INR Range Pat ients not on Anticoagulant Therapy *Deep Venous Thrombosis 2.0 - 3.0Pulmonary Embolism 2.0 - 3.0Atrial Fibrillation 2.0 - 3.0Prophylaxis: 2.0 - 3.0 High-Risk Surgery Tissue Heart Valves Atrial Fibrillation Acute Myocardial Infarction Valvular Heart DiseaseMechanical Prosthetic Valve 2.5 - 3.5* Use of INR values should be limited to patients who are on stable oralAnticoagulant Therapy.An INR above 5.0 - 5.5 appears to be associated with an uacceptably highrisk of bleeding.The above 2 analytes were performed by [place] [id number] [address] ID Date Data Source [id number] 11/10/2019 10:08:00 AM EDT [facility] Name Value Range Interpretation Code Description Data Azalea rce(s) Supporting Document(s) WBC 10.20 x1000/ul 4.80-10.00 Above high normal [facility] RBC 4.67 x1Mil/ul 4.20-5.40 Normal (applies to non-numeric re sults) [facility] Hemoglobin 14.3 g/dl 12.0-16.0 Normal (applies to non-numeric resul ts) [facility] Hematocrit 43.3 % 37.0-47.0 Normal (applies to non-numeric resul ts) [facility] MCV 92.7 fL 81.0-99.0 Normal (applies to non-numeric resul ts) [facility] MCH 30.6 pg 27.0-31.0 Normal (applies to non-numeric resul ts) [facility] MCHC 33.0 g/dl 32.2-37.0 Normal (applies to non-numeric resul ts) [facility] RDW 12.7 % 11.5-14.5 Normal (applies to non-numeric resul ts) [facility] Platelet Count 296 x1000/ul 130-400 Normal (applies to non-numeric results) [facility] MPV 9.5 fL 9.4-12.4 Normal (applies to non-numeric resul ts) [facility] Neutrophils 68.0 % 40.0-74.0 Normal (applies to non-numeric resu lts) [facility] Lymphocytes 21.7 % 19.0-48.0 Normal (applies to non-numeric resu lts) [facility] Monocytes 8.8 % 3.4-9.0 Normal (applies to non-numeric resul ts) [facility] Eosinophils 0.6 % 0.0-7.0 Normal (applies to non-numeric resu lts) [facility] Basophils 0.4 % 0.0-2.0 Normal (applies to non-numeric resul ts) [facility] Immature Granulocytes 0.5 % 0.0-0.5 Normal (applies to non-nu meric results) [facility] Nucleated RBCs 0.00 % 0.00-0.20 Normal (applies to non-numeric r esults) [facility] Abs. Neutrophils 6.94 x1000/ul 1.92-8.31 Normal (applies to non-numeric results) [facility] Abs. Lymphocyte 2.21 x1000/ul 1.20-3.70 Normal (applies to non-n umeric results) [facility] Abs. Monocytes 0.90 x1000/ul 0.14-0.97 Normal (applies to non-nu meric results) [facility] Abs. Eosinophils 0.06 x1000/ul 0.00-0.76 Normal (applie s to non-numeric results) [facility] Abs. Basophils 0.04 x1000/ul 0.00-0.22 Normal (applies to non-n umeric results) [facility] Abs. Immature Gran. 0.05 x1000/ul 0.00-0.02 Above high normal [facility] Abs. Nucleated RBCs 0.00 x1000/ul 0.00-0.02 Normal (appl ies to non-numeric results) [facility] The above 24 analytes were performed by [facility] [id number], ,[place] [address] ID Date Data Source [id number] 11/10/2019 09:25:16 AM EDT [facility] Name Value Range Interpretation Code Description Data Azalea rce(s) Supporting Document(s) ED Triage Notes [facility] TALKPd7xAbJOHeMn23/MRKlhBWFlr0AwPKnwZLq9VNzzGLAaE1FfRVX3gL4vKGR6AGhNXsLfShGtPgDe lbm [file] ICAgICAgICAgICAgICAgICAgICAgICAgICAgICAgIC AgICAgICAgICAgICAgICAgICAgICAgICAgICAgICAgICANCiAgICAgICAgICAgICAgICAgICAgICAgIC AgICAgICAgICAgICAgICAgICAgICAgICAgICAgICAgICAgICAgICAgICAgICAgICAgICAgICAgICAgIC AgICAgICAgICAgICAgICANCiAgICAgICAgICAgICAg ICAgICAgICAgICAgICAgICAgICAgICAgICAgICAgICAgICAgICAgICAgICAgICAgICAgICAgICAgICAg ICAgICAgICAgICAgICAgICAgICAgICAgICANCiAgICAgICAgICAgICAgICAgICAgICAgICAgICAgICAg ICAgICAgICAgICAgICAgICAgICAgICAgICAgICAgIC AgICAgICAgICAgICAgICAgICAgICAgICAgICAgICAgICAgICANCiAgICAgICAgICAgICAgICAgICAgIC AgICAgICAgICAgICAgICAgICAgICAgICAgICAgICAgICAgICAgICAgICAgICAgICAgICAgICAgICAgIC AgICAgICAgICAgICAgICAgICANCiAgICAgICAgICAg ICAgICAgICAgICAgICAgICAgICAgICAgICAgICAgICAgICAgICAgICAgICAgICAgICAgICAgICAgICAg ICAgICAgICAgICAgICAgICAgICAgICAgICAgICANCiAgICAgICAgICAgICAgICAgICAgICAgICAgICAg ICAgICAgICAgICAgICAgICAgICAgICAgICAgICAgIC AgICAgICAgICAgICAgICAgICAgICAgICAgICAgICAgICAgICAgICANCiAgICAgICAgICAgICAgICAgIC AgICAgICAgICAgICAgICAgICAgICAgICAgICAgICAgICAgICAgICAgICAgICAgICAgICAgICAgICAgIC AgICAgICAgICAgICAgICAgICAgICANCiAgICAgICAg ICAgICAgICAgICAgICAgICAgICAgICAgICAgICAgICAgICAgICAgICAgICAgICAgICAgICAgICAgICAg ICAgICAgICAgICAgICAgICAgICAgICAgICAgICAgICANCiAgICAgICAgICAgICAgICAgICAgICAgICAg ICAgICAgICAgICAgICAgICAgICAgICAgICAgICAgIC AgICAgICAgICAgICAgICAgICAgICAgICAgICAgICAgICAgICAgICAgICANCjw/mBPeQ7qltKOewlH7P1 ffDo8EBk6MTF7hu5TuAWTdRRodfoDrFedXIlUvDWOvEvnBSlv7IXozHI3QxTKgY5RmQ3NmIWsrGM8FTE BdQUSvzOGjUHMpBRWwWvZ6HKUvDSpkNP4ToVXqPJyw VNRgFFZfPL7WQQPpD355mmZzWP3MLe9JIsZlUI1yyo9UGAmkAWDlQrbVPfv9DMjxPT5QmOTwlAVmKIBp OHFOFgAuU9ifc2ZnNGbpYKGRTGjyEV9Kc7FjzGLpPIm+Fg3VAF6oj6LyBSarWIDuRF3puy5XVUqUGmSe C8ZyiRlpWNDNDIPdrMUqQOFWh9WglgZwtCSWTXnzPZ gyQ0RqWwIbmXksGw4pQNPfJi5oFO1mCHLcBCQ5SjR1PBCRWM4YKZNtMAJueHYfOAWzDCTNHP8TKFhiWH X7YawkovGdaOVjKJbsDV8WBKVrteIvYHlzARAKYUt+Lh5QCF0eh7RfADarSNAeWK3mvm7ZTHqEClKvU7 Z9sPGiA0S6IQfpFy7QDEPpNQZcZHKoJHTPVNpqGF3N CO9wyfA8BV9KmESrQFNdJRGqcTGgVKq7Y92zpLEoRFlyIC4FVQJ+Jorge+Yb8UMURpRTGrXCZsEfMvOYLB QoPdS3ClX6DOb4DmW7OwGL80rFdppxBuVErpPZ3SBE7qDSMyAWYXFY8QuAWjiF3tycLjTsZhOENLAcSp X74kwZPmEDBlJFP7LKSgTh4QDTPpA9ZzfmNjaXwiog IwZXEmCFJMJG5VOOnxwqOvhTFjoJsnMQ36xRvsPP6GUs6SNnLsLM9ipj0MkZVwIa4GLHBuXB5OKAJeRI UcAOPgKKU1FYQsOqYxPZeuEVXwECOcVDO4APQsFTQjAV7FBwZwXKHiFMN5YcQbKNGbTBBgjk1LTVQeQK UlGvSrUFEoHVYeDWAoSLeyQJQfGNJjEYA8VNFdTCLu AW0REmJeTHJuBNI4JMuqMYTgPMRstx0UQFPvQEEmVRbdGrXxPEUmDKSxUSecCPHqPGUlOmasAHJqDZMi AE2AXeUeKZVgNEY6FGQzQTCrNYSnyu2SFSQyMWMjOyI0ViQgVKOyIVDrVXvvTTViESF3KEK1XBYdFDTy FJ0QPcZxQWCwLCVmFcQqOSTrFVHbkb6VOOPhXLShSE JyYHZuCSQwFUOmJFmiFRKdWJA2XyCnWDZbLRHgKT3JLdXxMOWuUFV4IpDnIHHyCOUcrd6KLAEoXTOnFR t1EOKnCVFrXODaCFhfXJRnHDR6QTxdATFkNNJdSN0EYiQsAAAcCMc8HYhpGZFpLPNqln9CNBVsJKOlYk J0LDTgVZMjJOJvWObyDTOtNDG4ZHP6MMGiTKLgUW2W HyTfNLdgRJNXSxc6DHitF6m7PIWyCC1XM6Hum3JtVDizLUGWTJqlGT9fooQpVPKeLe6PK5jXPyomKehq UJAzQFC5SNp5QtB9BZS4SoCjFxFzTDK2SBO4Jd0pZYRsHYF3BWE7HiblTAPxYChoRSptUqT9VGY5OzW1 HqtyIfWbQS1OOm6XTvP8OTW7xPUnXl7AIDS8St3LABVPU4PRNy== ID Date Data Source [id number] 09/30/2019 10:11:54 AM [facility] Name Value Range Interpretation Code Description Data Azalea rce(s) Supporting Document(s) Progress Note [facility] QPHNOj1bZbDIZjJb49/QEEyvHYPwz6TcTGluXFi0HXmgZIRvC8DoCOT5pA3jVKT3GXtFPeQeDyZwKSCf lbm [file] [facility]//2/329qE860hmiHbF8hq23nDTRI2PEQZO66FN0zjNGlRu+tj9AskPIODtXqUg0AwJ2N4opOyc33 [file] Cj4+GKcifGQyaXipHLKQDjE9CNN0AZasAQQYEz9W Procedure Social History Code Duration Value Status Description Data Source(s ) Smoking 05/12/2020 12:00:00 AM EDT Patient has never smoked co mpleted Patient has never smoked MEDENT ([facility]) Alcohol intake 11/10/2019 12:00:00 AM EDT Not Currently completed [facility] Smoking 11/10/2019 12:00:00 AM EDT Never smoker completed Never s [facility] Alcohol intake 09/30/2019 12:00:00 AM EST Current drinker of al cohol (finding) completed Current drinker of alcohol (finding) [facility] Smoking 09/30/2019 12:00:00 AM EST Never smoker completed Never s [facility] Vital Signs ID Date Data Source UNK Name Value Range Interpretation Code Description Data Source(s) Respiratory rate 16 /min 16 /min MED[facility] ( [facility]) Body mass index (BMI) [Ratio] 21.6 kg/m2 21.6 k g/m2 [facility] ([facility]) Body weight 130.00 [lb_av] 130.00 [lb_av] MEDEN T ([facility]) Body height 65 [in_i] 65 [in_i] MEDENT ([facility]) 5'5" Body weight 121 [lb_av] 121 [lb_av] ANALILIA ([facility]) Systolic blood pressure 142 mm[Hg] 142 mm[Hg] A THENA ([facility]) Body mass index (BMI) [Ratio] 20.1 kg/m2 20.1 k g/m2 ANALILIA ([facility]) Body height 65 [in_i] 65 [in_i] ANALILIA ([facility]) Diastolic blood pressure 98 mm[Hg] 98 mm[Hg] ANALILIA ([facility]) Body weight 121 [lb_av] 121 [lb_av] ANALILIA ([facility]) Systolic blood pressure 142 mm[Hg] 142 mm[Hg] A THENA ([facility]) Body mass index (BMI) [Ratio] 20.1 kg/m2 20.1 k g/m2 ANALILIA ([facility]) Body height 65 [in_i] 65 [in_i] ANALILIA ([facility]) Diastolic blood pressure 98 mm[Hg] 98 mm[Hg] [facility] Oxygen saturation in Arterial blood by Pulse oximetry 99 % 99 % gMED ([facility]) Respiratory rate 15 /min 15 /min gMED ([facility]) Heart rate 112 /min 112 /min gMED ([facility]) Body temperature 99.1 [degF] 99.1 [degF] gMED ( [facility]) Diastolic blood pressure 91 mm[Hg] 91 mm[Hg] gMED ([facility] /[facility]) Systolic blood pressure 141 mm[Hg] 141 mm[Hg] g MED ([facility], /[facility]) Body mass index (BMI) [Ratio] 20.3 kg/m2 20.3 k g/m2 gMED ([facility] /[facility]) Body weight 122 [lb_av] 122 [lb_av] gMED ([facility]) Body height 65 [in_i] 65 [in_i] gMED ([facility]) Body mass index (BMI) [Ratio] 21.6 kg/m2 21.6 k g/m2 MEDENT ([facility]) Body weight 130.00 [lb_av] 130.00 [lb_av] MEDEN T ([facility]) Body height 65 [in_i] 65 [in_i] MEDENT ([facility]) 5'5" Oxygen saturation in Arterial blood by Pulse oximetry 98 % 98 % [facility] Respiratory rate 15 /min 15 /min [facility] Heart rate 83 /min 83 /min [facility] Diastolic blood pressure 88 mm[Hg] 88 mm[Hg] [facility] Systolic blood pressure 146 mm[Hg] 146 mm[Hg] M [facility] Body temperature 37.17 Simin 37.17 Simin [facility] Body mass index (BMI) [Ratio] 21.97 kg/m2 21.97 kg/m2 [facility] Body weight 59.875 kg 59.875 kg [facility] Body height 165.1 cm 165.1 cm [facility] Body mass index (BMI) [Ratio] 21.6 kg/m2 21.6 k g/m2 MEDENT ([facility]) Body weight 130.00 [lb_av] 130.00 [lb_av] MEDEN T ([facility]) Body height 65 [in_i] 65 [in_i] MEDENT ([facility]) 5'5" Diastolic blood pressure 90 mm[Hg] 90 mm[Hg] MEDENT ([facility]) Systolic blood pressure 124 mm[Hg] 124 mm[Hg] M EDENT ([facility]) Heart rate 16 /min 16 /min [facility] ([facility]) Body mass index (BMI) [Ratio] 21.6 kg/m2 21.6 k g/m2 MED[facility] ([facility]) Body weight 130.00 [lb_av] 130.00 [lb_av] MEDEN T ([facility]) Body height 65 [in_i] 65 [in_i] [facility] ([facility]) 5'5" ID Date Data Source [id number] 09/30/2019 10:11:54 AM [facility] Name Value Range Interpretation Code Description Data Source(s) WEIGHT RECORDED 134 lb 134 lb [facility] Body height Measured 67.01 in 67.01 in [facility] Patient Treatment Plan of Care Planned Activity Planned Date Details Description Data Source (s) 05/09/2020 12:00:00 AM EDT g MED ([facility]) 12 HR Orphenadrine Citrate 100 MG Extended Release Ora l Tablet 11/10/2019 12:00:00 AM EDT [facility] Ibuprofen 800 MG Oral Tablet 11/10/2019 12:00:00 AM EDT [facility] Dextran 70 1 MG/ML / hypromellose 3 MG/ML Ophthalmic S olution 07/05/2019 12:00:00 AM EST [facility] Acetaminophen 325 MG / Hydrocodone Bitartrate 10 MG Or al Tablet 10/30/2016 12:00:00 AM EST [facility] tramadol ANALILIA ([facility]) topiramate 25 MG Oral Capsule ANALILIA ([facility]) oxcarbazepine ANALILIA ([facility]) 12 HR Orphenadrine Citrate 100 MG Extended Release Oral Tablet ANALILIA ([facility]) Ondansetron 4 MG Oral Tablet ANALILIA ([facility]) lidocaine 5 % medicated patch and dimethicone 5 % topical cream ANALILIA ([facility]) Acetaminophen 325 MG / Hydrocodone Bitartrate 5 MG Oral Tablet A[facility]ILIA ([facility]) Cyclobenzaprine hydrochloride 10 MG Oral Tablet A[facility]IA ([facility]) Clindamycin 300 MG Oral Capsule ANALILIA ([facility]) 12 HR Carbamazepine 200 MG Extended Release Oral Tablet ANALILIA ([facility]) tramadol ANALILIA ([facility]) topiramate 25 MG Oral Capsule ANALILIA ([facility]) oxcarbazepine ANALILIA ([facility]) 12 HR Orphenadrine Citrate 100 MG Extended Release Oral Tablet ANALILIA ([facility] Ondansetron 4 MG Oral Tablet ANALILIA ([facility] lidocaine 5 % medicated patch and dimethicone 5 % topical cream ANALILIA ([facility]) Acetaminophen 325 MG / Hydrocodone Bitartrate 5 MG Oral Tablet ANALILIA ([facility]) Cyclobenzaprine hydrochloride 10 MG Oral Tablet ANALILIA ([facility]) Clindamycin 300 MG Oral Capsule ANALILIA ([facility]) 12 HR Carbamazepine 200 MG Extended Release Oral Tablet ANALILIA ([facility]) UNABLE TO FIND [facility] dextrose 5 % SOLN 250 mL with calcium di sodium versenate 1 GM/5ML SOLN 50 mg/kg/day [facility]
[2020-10-26] MEDS ORDERED: OXCA150T21 (16:05)
[2020-10-26] MEDS ORDERED: LEVO-53 (16:05)
--- OUTSIDE RECORDS SUMMARY | 2020-10-26 16:46 | CCD ---
Author Author [facility] Organization [facility] Address Unknown Phone Unavailable Care Team Providers Care Event Manager Name Role Phone AMIE, Emi RAMIREZ MD [...] K MIKE BILL Unavailable Unavailable JEFF, K IMKE BILL Unavailable Unavailable JEFF, K MIKE BILL [...] Aziz DO Unavailable Unavailab le Qandah, Basem Ed Aziz DO Unavailable Unavailab le Qandah, Basem [...] Unavailable Unavailable Sarthak CORONADO MD Unavailable Unavailable Srathak CORONADO MD Unavailable Unavailable Sarthak CORONADO MD Unavailable Unavailable Sarthak CORONADO MD Unavailable Unavailable Sarthak CORONADO MD Unavailable Unavailable Sarthak CORONADO MD Unavailable Unavailable Sarthak CORONADO MD Unavailable Unavailable BREHASarthak STROUD MD Unavailable Unavailable BREHASarthak STROUD MD Unavailable Unavailable BREHAUTSarthak MD Unavailable Unavailable BREHAUT, Sarthak MALCOLM MD Unavailable Unavailable BREHAUT, aSrthak MALCOLM MD Unavailable Unavailable BREHAUT, Sarthak MALCOLM [...] Sarthak MALCOLM MD Unavailable Unavailable BREHAUT, Sarthak AMLCOLM MD Unavailable Unavailable BREHAUT, Sarthak MALCOLM MD [...] BREHAUT, Sarthak MALCOLM MD Unavailable Unavailable BREHAUT, Sarthka MALCOLM MD Unavailable Unavailable BRESarthak PORTILLO MD [...] PORTILLO MD Unavailable Unavailable Woodrick, Yola Tereza DEALER RELATIONSHIP MANAGER-C Unavailable Unavail able Woodrick, Yola Tereza DEALER RELATIONSHIP MANAGER-C Unavailable Unavail able Woodrick, Yola Tereza DEALER RELATIONSHIP MANAGER-C Unavailable Unavail able Woodrick, Yola Tereza DEALER RELATIONSHIP MANAGER-C Unavailable Unavail able Woodrick, Yola Tereza DEALER RELATIONSHIP MANAGER-C Unavailable Unavail able Woodrick, Yola Tereza DEALER RELATIONSHIP MANAGER-C Unavailable Unavail able Woodrick, Yola Tereza DEALER RELATIONSHIP MANAGER-C Unavailable Unavail able Woodrick, Yola Tereza DEALER RELATIONSHIP MANAGER-C Unavailable Unavail able Woodrick, Yola Tereza DEALER RELATIONSHIP MANAGER-C Unavailable Unavail able Woodrick, Yola Tereza DEALER RELATIONSHIP MANAGER-C Unavailable Unavail able Woodrick, Yola Tereza DEALER RELATIONSHIP MANAGER-C Unavailable Unavail able Woodrick, Yola Tereza DEALER RELATIONSHIP MANAGER-C Unavailable Unavail able Woodrick, Yola Tereza DEALER RELATIONSHIP MANAGER-C Unavailable Unavail able Woodrick, Yola Tereza DEALER RELATIONSHIP MANAGER-C Unavailable Unavail able Woodrick, Yola Tereza DEALER RELATIONSHIP MANAGER-C Unavailable Unavail able Woodrick, Yola Tereza DEALER RELATIONSHIP MANAGER-C Unavailable Unavail able Woodrick, Yola Tereza DEALER RELATIONSHIP MANAGER-C Unavailable Unavail able Woodrick, Yola Tereza DEALER RELATIONSHIP MANAGER-C Unavailable Unavail able Woodrick, Yola Tereza DEALER RELATIONSHIP MANAGER-C Unavailable Unavail able Woodrick, Yola Tereza DEALER RELATIONSHIP MANAGER-C Unavailable Unavail able Woodrick, Yola Tereza DEALER RELATIONSHIP MANAGER-C Unavailable Unavail able Woodrick, Yola Tereza DEALER RELATIONSHIP MANAGER-C Unavailable Unavail able Woodrick, Yola Tereza DEALER RELATIONSHIP MANAGER-C Unavailable Unavail able Woodrick, Yola Tereza DEALER RELATIONSHIP MANAGER-C Unavailable Unavail able Woodrick, Yola Tereza DEALER RELATIONSHIP MANAGER-C Unavailable Unavail able Woodrick, Yola Tereza DEALER RELATIONSHIP MANAGER-C Unavailable Unavail able Woodrick, Yola Tereza DEALER RELATIONSHIP MANAGER-C Unavailable Unavail able Woodrick, Yola Tereza DEALER RELATIONSHIP MANAGER-C Unavailable Unavail able Woodrick, Yola Tereza DEALER RELATIONSHIP MANAGER-C Unavailable Unavail able DEBONI, R ASHLEY MD [...] Unavailable DEBONI, R ASHLEY MD Unavailable Unavailable ANN, 0000{ Unavailable Unavailable Re-disclosure Warning The records [...] is protected by Article 27-F of the [facility] Public Health law. If you continue you may have access to information: Regarding HIV / AIDS; Provided by facilities licensed or operated by the [facility] Office of Mental Health; or Provided by the [facility] Office for People With Developmental Disabilities. If such information is present, then the following [facility] mandated warning applies: This information has been [...] law may result in a fine or intermediate sentence or both. A general authorization for the release of medical or other information is NOT sufficient authorization for further disc losure. Family History Family Member Name Family Member Gender Family Member Status Date o f Status Description Data Source(s) Unknown Male Problem MEDENT ([facility] [place]) Unknown Male Problem MEDENT ([facility]) Unknown Unknown Problem MEDENT ([facility]) Encounters Encounter Providers Location Date Indications Data Source(s ) Attender: ASHLEY Bradley-LABMEDART 10/26/2020 10:54:42 AM [facility] OUTPATIENT [facility]: [facility] ASHLEY Bradley-LABMEDKAPLAN 10/26/2020 10:51:00 AM [facility] Attender: Osvaldo Randall MD 5F-FLCS 09/21/2020 09:59:51 A M [facility] Outpatient Attender: Leander Thomas Office 09/11/2020 10:30:00 A M EST MEDENT ([facility]) Attender: Osvaldo Randall MD 5F-FLCS 09/05/2020 09:59:31 A M [facility] Teresa Mcneill MD: [address] [address], Ph. Attender: Teresa Mcneill MD [facility] Office 08/18/2020 12:00:00 AM EST [facility] ([facility]) Teresa Mcneill MD: [address] [address], [place] [address], Ph. Attender: Teresa Mcneill MD [place] [facility] Office 08/18/2020 12:00:00 AM EST [facility] ([facility]) Outpatient Attender: Tereza Beth DEALER RELATIONSHIP MANAGER-C 0 07:42:00 AM EST POLYDIPSIA ABNORMAL WEIGHT LOSS LEFT LOWER QUADRANT PAIN [facility] POLYDIPSIA ABNORMAL WEIGHT LOSS LEFT LOW ER QUADRANT PAIN Outpatient Attender: 0000{ FORSYTH 07/24/2020 07:42:00 AM E [facility] Outpatient Attender: Osvaldo Randall MDReferrer: Osvaldo Randall MD 2E-SEUS 06/29/2020 08:42:35 AM EDT - 06/29/2020 11:59:[address] [facility] Patient discharged. First degree hemorrhoids 06/26/2020 12:00 :00 AM EDT Other specified diseases of esophagusFirst degree hemorrhoidsNauseaDiarrheaBloating symptom gMED ([facility], [facility], [facility]) Other specified diseases of esophagus First degree hemorrhoids Nausea Diarrhea Bloating symptom Attender: Osvaldo Randall MD 5F-FLCS 06/08/2020 01:33:00 P M EDT [facility] Outpatient Attender: ASHLEY DURAN MD Main Office 05/11/2020 11:15:00 AM EDT MEDENT ([facility]) Outpatient Attender: Juan Romano DPMReferrer: Juan lombardo DPM 2E-RA 04/11/2020 10:33:57 AM EDT - 04/11/2020 11:59:00 PM EDT [facility] Patient discharged. Attender: Juan Romano DPM 5F-FLCS 04/06/2020 11:48: 26 AM EDT [facility] Attender: YUN CORONADO MD 2E-LABMEDART 03/21/2020 10:42:2 1 AM EDT [facility] OUTPATIENT Attender: YUN CORONADO MDReferrer: YUN Zarate MD 2E-LABMEDART 03/21/2020 10:40:00 AM EDT - 03/21/2020 11:59:00 PM EDT [facility] Patient discharged. Outpatient Attender: Leander Thomas Office 03/16/2020 03:30:00 P M EDT MED[facility] ([facility]) ( in Healthcare facility) Attender: ASHLEY KRISHNAMURTHY MD 02/10/2020 06:47:00 AM EDT - 02/10/2020 06:15:00 PM EDT [facility] Outpatient Attender: ASHLEY KRISHNAMURTHY MDAdmitter: ASHLEY MCCRAY MD 02/10/2020 06:47:00 AM EDT - 02/10/2020 06:15:00 PM EDT [facility] Patient discharged. 11/10/2019 12:29:[facility] 10:09:22 AM EDT [facility] Emergency Attender: NICO ALEXANDRE MD -ER 11/09 09:08:31 AM EDT - 11/10/2019 02:12:00 PM EDT [facility] Patient discharged. Emergency Attender: NICO ALEXANDRE NM-ER 11/10/2019 09:08:31 AM EDT [facility] Attender: YUN CORONADO MD [facility] 11/03/2019 09:47:50 AM EST [facility] Outpatient Attender: MIKE AGUILAR MDReferrer: YUN CORONADO MD [id number] 09/27/2019 12:00:00 AM EST - 09/27/2019 01:02:43 PM [facility] Outpatient Attender: Leander Thomas Office 09/23/2019 12:15:00 P M EST MEDENT ([facility]) Medications Medication Brand Name Start Date Product Form Dose Route Admi nistrative Instructions Pharmacy Instructions Status Indications Reaction Description Data Source(s) oxcarbazepine 150 MG Oral Tablet [Trileptal] Trileptal 05/11/2020 12:00:00 AM EDT ORAL active [facility] 05/09/2020 12:00:00 AM EDT compl eted Suprep Bowel Prep Kit 17.5-3.13-1.6 gram recon soln gMED ([facility]) 12 HR Orphenadrine Citrate [...] days. Do not crush, chew, or split. [facility] Ibuprofen 800 MG Oral Tablet ibuprofen (ADVIL,MOTRIN) 800 mg tablet ibuprofen (ADVIL,MOTRIN) 800 mg tablet 11/10/2019 12:00:00 AM EDT 800 mg oral active Take 1 tablet (800 m g total) by mouth every 8 (eight) hours if needed for moderate pain. [facility] Aimovig Aimovig 10/04/2019 12:00:00 AM EST active MEDENT ([facility] Dextran 70 1 MG/ML / hypromellose 3 MG/M L Ophthalmic Solution dextran 70- hypromellose, PF, (BION TEARS) 0.1-0.3 % ophthalmic solution dextran 70- hypromellose, PF, (BION TEARS) 0.1-0.3 % ophthalmic solution 07/05/2019 12:00:00 AM EST 1 [drp] Left Eye active Adminis ter 1 drop into the left eye 3 (three) times a day if needed for dry eyes. [facility] Acetaminophen 325 MG / Hydrocodone Kilo trate 10 MG Oral Tablet HYDROcodone- acetaminophen (VICODIN) 10-325 MG per tablet HYDROcodone-acetaminophen (VICODIN) 10-325 MG per tablet 10/30/2016 12:00:00 AM EST [facility] Cyclobenzaprine hydrochloride 10 MG Oral Tablet cyclobenzaprine 10 mg tablet TAKE 1 TABLET BY MOUTH EVERY DAY AT BEDTIME cyclobenzaprine 10 mg tablet TAKE 1 TABLET BY MOUTH EVERY DAY AT BEDTIME c ompleted cyclobenzaprine hydrochloride 10 MG Oral Tablet [facility] ([facility]) Clindamycin 300 MG Oral Capsule clindamycin HCl 300 mg capsule TK 1 C PO TID clindamycin HCl 300 mg capsule TK 1 C PO TID completed clindamycin 300 MG Oral Capsule [facility] ([facility]) oxcarbazepine completed oxcarb azepine [facility] ([facility]) 12 HR Carbamazepine 200 MG Extended Rele ase Oral Tablet carbamazepine ER 200 mg tablet,extended release,12 hr carbamazepine ER 200 mg tablet,extended release,12 hr completed 12 HR c arbamazepine 200 MG Extended Release Oral Tablet [facility] ([facility]) topiramate 25 MG Oral Capsule topiramate 25 mg sprinkle capsule Take 2 capsules twice a day by oral route. topiramate 25 mg sprinkle capsule Take 2 capsules twice a day by oral route. 2 capsule(s) compl eted topiramate 25 MG Oral Capsule [facility] ([facility]) Ondansetron 4 MG Oral Tablet ondansetron HCl 4 mg tabl et ondansetron HCl 4 mg tablet completed ondansetron 4 M G Oral Tablet [facility] ([facility]) 12 HR Orphenadrine Citrate 100 MG Extend [...] MG Extended Release Oral Tablet [facility] ([facility]) Fluoxetine 40 MG Oral Capsule fluoxetine 40 mg capsule 4 0 mg completed fluoxetine 40 mg capsule gMED ([facility]) UNABLE TO FIND aborted Two Times Daily Med Name: facial nerve pain [facility] Ondansetron 4 MG Oral Tablet ondansetron HCl 4 mg tabl et ondansetron HCl 4 mg tablet completed ondansetron 4 M G Oral Tablet [facility] ([facility]) Acetaminophen 325 MG / Hydrocodone Kilo trate 5 MG Oral Tablet hydrocodone 5 mg- acetaminophen 325 mg tablet hydrocodone 5 mg-acetaminophen 325 mg tablet completed acetaminophen 325 MG / hydrocodone bitartrate 5 MG Oral Tablet [facility] ([facility]) 12 HR Orphenadrine Citrate 100 MG Extend [...] MG Extended Release Oral Tablet [facility] ([facility]) Zolpidem tartrate 5 MG Oral Tablet zolpidem 5 mg tablet 5 mg completed zolpidem 5 mg tablet gMED ([facility]) topiramate 25 MG Oral Capsule topiramate 25 mg sprinkle capsule Take 2 capsules twice a day by oral route. topiramate 25 mg sprinkle capsule Take 2 capsules twice a day by oral route. 2 capsule(s) compl eted topiramate 25 MG Oral Capsule [facility] ([facility]) lidocaine 5 % medicated patch and dimethicone 5 % topical cream [id number] completed lidocaine 5 % m edicated patch and dimethicone 5 % topical cream [facility] ([facility]) oxcarbazepine completed oxcarb azepine [facility] ([facility]) dextrose 5 % SOLN 250 mL with calcium di sodium versenate 1 GM/5ML SOLN 50 mg/kg/day 50 mg aborted 50 mg Tw o Times Daily [facility] Clindamycin 300 MG Oral Capsule clindamycin HCl 300 mg capsule TK 1 C PO TID clindamycin HCl 300 mg capsule TK 1 C PO TID completed clindamycin 300 MG Oral Capsule [facility] ([facility]) lidocaine 5 % medicated patch and dimethicone 5 % topical cream 784833 completed lidocaine 5 % m edicated patch and dimethicone 5 % topical cream [facility] ([facility]) Acetaminophen 325 MG / Hydrocodone Kilo trate 5 MG Oral Tablet hydrocodone 5 mg- acetaminophen 325 mg tablet hydrocodone 5 mg-acetaminophen 325 mg tablet completed acetaminophen 325 MG / hydrocodone bitartrate 5 MG Oral Tablet [facility] ([facility]) Cyclobenzaprine hydrochloride 10 MG Oral Tablet cyclobenzaprine 10 mg tablet TAKE 1 TABLET BY MOUTH EVERY DAY AT BEDTIME cyclobenzaprine 10 mg tablet TAKE 1 TABLET BY MOUTH EVERY DAY AT BEDTIME c ompleted cyclobenzaprine hydrochloride 10 MG Oral Tablet [facility] ([facility]) tramadol completed tramadol [facility] ([facility]) 12 HR Carbamazepine 200 MG Extended Rele ase Oral Tablet carbamazepine ER 200 mg tablet,extended release,12 hr carbamazepine ER 200 mg tablet,extended release,12 hr completed 12 HR c arbamazepine 200 MG Extended Release Oral Tablet [facility] ([facility]) tramadol completed tramadol [facility] ([facility]) Insurance Providers Payer name Policy type / Coverage type Policy ID Covered libertarian ID Covered libertarian's relationship to barrios Policy Barrios Plan Information RUSSEL [id number] RUSSEL [id number] Self [id number] [place]ARE [place] O [id number] S [id number] HEA [id number] RUSSEL CARE A [id number] S [id number] RUSSEL [id number] OTHER HEA S RUSSEL [id number] Self [id number] RUSSEL I [id number] Self [id number] 100 RUSSEL I [id number] Self [id number] RUSSEL I [id number] Self [id number] [place] Commercial [id number] Self [id number] Russ[place] Commercial [id number] Self [id number] Russ[place] Medicaid Commercial [id number] Self [id number] Russ[place] Medicaid Commercial [id number] Self [id number] [place] Medicare Advantge Commercial [id number] Self [id number] SPECIAL ACCOUNT (8) UNAVAILABLE UNAVAILABLE MEDICAID (101) [id number] RUSSEL (192) [id number] Russ[place] Medicare Advantge Commercial [id number] Self [id number] [place] Care [place] Commercial [id number] Self [id number] RUSSEL [id number] Patient [id number] [place] Medicare Advantge Commercial [id number] Self [id number] [place] Medicare Advantge Commercial [id number] Self [id number] [place] Medicare Advantge Commercial [id number] Self [id number] Russ[place] Medicare Advantge Commercial [id number] Self [id number] UNAVAILABLE UNAVAILA BLE MEDICAID GME [id number] S [id number] [place] Medicare Advantge Commercial [id number] Self [id number] [place] Medicare Advantge Commercial [id number] Self [id number] [place] Medicare Advantge Commercial [id number] Self [id number] [place] Individual Policy 0 Self 0 [place] Individual Policy 0 Self 0 [place] Individual Policy 0 Self 0 [place] Individual Policy 0 Self 0 [place] Individual Policy 0 Self 0 [place] Individual Policy 0 Self 0 [place] Individual Policy 0 Self 0 [place] Individual Policy 0 Self 0 [place] Individual Policy 0 Self 0 [place] Individual Policy 0 Self 0 [place] Individual Policy 0 Self 0 [place] Individual Policy 0 Self 0 [place] Individual Policy 0 Self 0 [place] Individual Policy 0 Self 0 [place] Individual Policy 0 Self 0 [place] Individual Policy 0 Self 0 [place] Individual Policy 0 Self 0 [place] Individual Policy 0 Self 0 [place] Individual Policy 0 Self 0 RUSSEL [id number] Patient [id number] 100 MEDICAID (101) [id number] 92Y RUSSEL [id number] Patient [id number] RUSSEL [facility] (201) [id number] SELF PAY SELF PAY Patient SELF PAY MEDICAID [id number] Patient [id number] Problems, Conditions, and Diagnoses Code Display Name Description Problem Type Effective Dates Data Source(s) 003075336 Genetic finding Genetic Finding Problem 08/18/2020 12:0 0:00 AM [facility] ([facility]) [id number] Genetic finding Genetic Finding Problem 08/18/2020 12:0 0:00 AM G[place]ILL[place] ([facility]) [id number] Trigeminal neuralgia Trigeminal neuralgia Problem 05/11/2020 12:00:00 AM EDT MEDENT ([facility] [email or web address] [facility]) [id number] Lumbosacral spondylosis without myelopat hy Lumbosacral spondylosis without myelopathy Problem 03/16/2020 12:00:00 AM EDT [facility] ([facility]) E04.1 Nontoxic single thyroid nodule Nontoxic single thyroid nodule Diagnosis 06/29/2020 08:42:35 AM EDT [facility] M77.31 Calcaneal spur, right foot Calcaneal spur, right foot Diagnosis 04/11/2020 10:33:57 AM EDT [facility] M21.961 Unspecified acquired deformity of right lower leg Unspecified acquired deformity of right lower leg Diagnosis 04/11/2020 10:33:57 AM EDT [facility] M21.962 Unspecified acquired deformity of left l ower leg Unspecified acquired deformity of left lower leg Diagnosis 04/11/2020 10:33:57 AM EDT [facility] R93.89 Abnormal findings on diagnos tic imaging of other specified body structures Abnormal findings on diagnostic imaging of other specified body structures Diagnosis 03/21/2020 10:40:01 AM EDT [facility] M54.12 Radiculopathy, cervical region Radiculopathy, cervical region Diagnosis 11/10/2019 09:08:31 AM EDT [facility] 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, unspec ified cervical region Other cervical disc displacement, unspecified cervical region Diagnosis 11/10/2019 09:08:31 AM EDT [facility] Numbness Numbness Diagnosis 11/10/2019 09:08:31 AM ED T [facility] left sided body numbness left sided body numbness Diag nosis 11/10/2019 08:53:00 AM EDT [facility] Surgeries/Procedures Procedure Description Date Indications Data Source(s) US SOFT TISSUE HEAD & NECK REAL TIME IMGE DOCMTN US HEAD NE CK SOFT TISSUE Routine 06/29/2020 9:20 AM EDT Nontoxic single thyroid nodule 06/29/2020 01:20:00 PM EDT No ntoxic single thyroid nodule [facility] Nontoxic single thyroid nodule EGD 06/26/2020 12:00:00 AM EDT g MED ([facility]) CT Scan 06/26/2020 12:00:00 AM EDT g MED ([facility]) RADEX FOOT COMPLETE MINIMUM 3 VIEWS XR FOOT 3+ VIEWS BILATERAL Routine 04/11/2020 10:52 AM EDT Unspecified acquired deformity of left lower leg Unspecified acquired deformity of right lower leg Calcaneal spur, right foot 04/11/2020 02:52:12 PM EDT Cal[place] eal spur, right footUnspecified acquired deformity of right lower legUnspecified acquired deformity of left lower leg [facility] Calcaneal spur, right foot Unspecified acquired deformity of right lower leg Unspecified acquired deformity of left l ower leg Graft of Skin to Skin 02/10/2020 12:00:00 AM EDT [facility] ([facility]) Graft of Skin to Skin 02/10/2020 12:00:00 AM EDT [facility] ([facility]) MRI BRAIN BRAIN STEM W/O &W/CONTRAST MATERIAL MRI BRAIN W WO CO NTRAST STAT 11/10/2019 11:37 AM EDT 11/10/2019 03:37:07 PM EDT [facility] MRI SPINAL CANAL CERVICAL W/O & W/CONTR MATRL MRI CERVICAL SPINE W WO CONTRAST STAT 11/10/2019 11:32 AM EDT 11/10/2019 03:32:45 PM EDT [facility] PT ON THERAPY PT ON THERAPY STAT 11/10/2019 9:55 AM EDT 11/10/2019 01:55:00 PM EDT [facility] CBC AND DIFFERENTIAL CBC AND DIFFERENTIAL STAT 11/10/2019 9:55 AM EDT 11/10/2019 01:55:00 PM EDT [facility] COMPREHENSIVE METABOLIC PANEL COMPREHENSIVE METABOLIC PANEL STA T 11/10/2019 9:55 AM EDT 11/10/2019 01:55:00 PM EDT [facility] Results ID Date Data Source [id number] 10/26/2020 04:41:00 PM EST [facility] Name Value Range Interpretation Code Description Data Azalea rce(s) Supporting Document(s) Homocysteine 6.7 uMol/l 3.2-10.7 Normal (applies to non-numeric res ults) [facility] The above 1 analytes were performed by Sarthak Aceves [facility] [id number] [place] [address], ,[place] [address] ID Date Data Source [id number] 10/26/2020 04:29:00 PM EST [facility] Name Value Range Interpretation Code Description Data Azalea rce(s) Supporting Document(s) Sedimentation Rate 3 mm/hr 0-20 Normal (applies to non-numer ic results) [facility] The above 1 analytes were performed by Sarthak zarateFrancia [facility] [address], ,[place] [address] ID Date Data Source [id number] 07/24/2020 10:25:00 AM EST [facility] DATE OF EXAM: 07/24/2020 MRI ABDOMEN WIT [...] to ensure stability. Professional interpretation performed at [facility] .End of diagnostic report for accession: [id number] Interpreted: Juana Salinas MDTranscribed: 07/24/2020 10:14 AMSigned: 07/24/2020 10:25 AM Juana Salinas MD [facility] ACC # [id number] BILL # [id number] 2MEM Name Value Range Interpretation Code Description Data Azalea rce(s) Supporting Document(s) ID Date Data Source [id number] 07/24/2020 08:45:00 AM EST [facility] DATE OF EXAM: 07/24/2020TRANSVAGINAL ULT RASOUND INDICATIONS: [...] or endometrial abnormality. Professional interpretation performed by [facility] Medical Imaging at [facility] End of diagnostic report for accession: [id number] Interpreted: Edgar Youssef MDTranscribed: 07/24/2020 08:41 AMSigned: 07/24/2020 08:45 AM Edgar Youssef MD [facility] # [id number] BILL # [id number] 2MEM Name Value Range Interpretation Code Description Data Azalea rce(s) Supporting Document(s) ID Date Data Source [id number] 06/29/2020 09:40:03 AM EDT [facility] Patient: FLY CARIAS : 1975 [facility]: [facility] HEAD NECK SOFT TISSUE Provider: OSVALDO VENTURAINICAL HISTORY: Nontoxic single thyroid noduleTECHNIQUE: Multiple sonographic [...] rce(s) Supporting Document(s) ID Date Data Source [id number] 06/21/2020 12:55:00 PM EDT [facility] Name Value Range Interpretation Code Description Data Azalea rce(s) Supporting Document(s) SARS coronavirus 2 RNA [facility] This lab was ordered by Lab [facility] and reported by [facility]. ID Date Data Source [id number] 06/22/2020 10:09:54 AM EDT [facility] [place] [facility] Name Value Range Interpretation Code Description Data Azalea rce(s) Supporting Document(s) SARS-COV-2 [place] Laboratory [place] [facility] [facility] Not DetectedReference range: Not Detecte d This nucleic acid amplification test was developed and its performance characteristics determined by [employer]. Nucleic acid amplification tests include PCR and [...] detected) result in this assay. Performed At: [facility] [id number] Sav Carolina MD Ph:[phone] ID Date Data Source [id number] 05/23/2020 12:00:00 AM EDT [facility]MED ([facility], [facility], [facility]) Name Value Range Interpretation Code Description Data Azalea rce(s) Supporting Document(s) LACNY C Diff Stool SENT -- LACNY C Diff Stoo l [facility]MED ([facility], [facility], [facility]) LACNY Fecal Calprotectin SENT -- LACNY Fecal Calprotectin [facility]MED ([facility], [facility], [facility]) LACNY Enteric Pathogens By PCR, Stool SENT -- LACNY Enteric Pathogens By PCR, Stool [facility]MED ([facility], [facility]) LACNY STOOL FOR ELASTASE SENT -- LACNY STOOL FOR ELASTASE gMED ([facility], /[facility], [facility]) ID Date Data Source [id number] 04/11/2020 11:45:18 AM EDT [facility] Patient: FLY CARIAS : 1975 [facility]ACS [facility]: [facility] FOOT 3+ VIEWS BILATERAL Provider: JUAN [...] rce(s) Supporting Document(s) ID Date Data Source [id number] 03/23/2020 01:31:00 PM EDT [facility] Name Value Range Interpretation Code Description Data Azalea rce(s) Supporting Document(s) CEA 2.8 ng/ml 0.0-3.0 Normal (applies to non-numeric resul ts) [facility] The CEA is performed using the [...] to falsely elevateresults. CEA Frequency First specimen [facility] The above 2 analytes were performed by Sarthak Aceves [facility] [id number] [place] [address], ,[place] [address] ID Date Data Source [id number] 03/21/2020 02:23:00 PM EDT [facility] Name Value Range Interpretation Code Description Data Azalea rce(s) Supporting Document(s) CA 19-9 5.82 U/ml 0.0-35.0 Normal (applies to non-numeric resul ts) [facility] Testing performed on the Siemens Centuar -XP.Sequential comparative analyses should be performed using the sameanalyzer type since results obtained fromdifferent analyzer type are not interchangeable. Results cannot beinterpreted as absolute evidence of the presenceor absense of malignant disease. CA 19-9 Frequency First specimen [facility] The above 2 analytes were performed by [facility] [id number] [place] [address], ,[place] [address] ID Date Data Source [id number] 03/21/2020 02:23:00 PM EDT [facility] Name Value Range Interpretation Code Description Data Azalea rce(s) Supporting Document(s) CA 125 4.70 U/ml 0.0-30.2 Normal (applies to non-numeric resul ts) [facility] Testing performed on the Siemens Caravanuar -XP.Sequential comparative analyses should be performed using the sameanalyzer type since results obtained fromdifferent analyzer type are not interchangeable. Results cannot beinterpreted as absolute evidense of the presenceor absence of malignant disease. CA-125 Frequency First specimen [facility] The above 2 analytes were performed by [facility] [id number] [facility] [id number],[place] [address] ID Date Data Source [id number] 03/28/2020 10:00:00 AM EDT [facility] [id number] [place], [place] [address]EUQAKKH NAME: JESUS CARIAS OF : 1975REPORT: OPERATIONPATIENT NUMBER: [id number] STATUS: SDMEDICAL RECORD NUMBER: [id number] OF ADMISSION: 02/10/2020DATE OF DISCHARGE: 02/10/2020DATE OF [...] then performed. The fat was refined using netTALK fat harvest system yielding approximately 700 cc of excellentquality usable fat.The fat was placed into 10 cc microinjection cannulas and using [id number] injection cannulas, both breasts were augmented using [...] therecovery room in satisfactory condition.DICTATED BY: Ashley Krishnamurthy MDDictated: 02/29/2020 10:28DT: 02/29/2020 10:33Job #: [id number]: [facility] computer generated reports are not confirmed orauthenticated unless they are signed by the providerElectronically Authenticated by:ASHLEY KRISHNAMURTHY MD On 03/28/2020 10:00 AM EDT Name Value Range Interpretation Code Description Data Azalea rce(s) Supporting Document(s) ID Date Data Source [id number] 02/07/2020 12:18:00 PM EDT [facility] Name Value Range Interpretation Code Description Data Azalea rce(s) Supporting Document(s) SARS Coronavirus RNA [facility] This lab was ordered by [facility] and reported by [facility] [employer]. ID Date Data Source [id number] 11/10/2019 02:03:07 PM EDT [facility] Name Value Range Interpretation Code Description Data Azalea rce(s) Supporting Document(s) ED Provider Notes [facility] [id number]/XIGmfHZYib5PsFDfiXGz6PSsjZDIrF0RbERQ6gE3mJGA9AJdSQxYiZxRsVpCh lbm [file] m1S4MpRnOqDmUnGuBlHxTbNZg4ESFlMkYdXW0ZAw1FQoQ2JJN4xODsIu2BNyC7UptDGnZjHM6YRWn= ID Date Data Source [id number] 11/10/2019 12:30:11 PM EDT [facility] MRICLINICAL HISTORY:Weakness and nu [...] rce(s) Supporting Document(s) ID Date Data Source [id number] 11/10/2019 11:49:45 AM EDT [facility] [...] rce(s) Supporting Document(s) ID Date Data Source [id number] 11/10/2019 10:32:00 AM EDT [facility] Name Value Range Interpretation Code Description Data Azalea rce(s) Supporting Document(s) AST 11 IU/L 15-37 Below low normal [facility] Sulfasalazine and sulfapyridine have the potential to falsely depressAspartate Aminotransferase results. Baseline values before medication administration are recommended. ALT 28 IU/L 13-56 Normal (applies to non-numeric resul ts) [facility] Sulfasalazine and sulfapyridine have the potential to falsely depressAlanine Aminotransferase results. Baseline values before medication administration are recommended. Alkaline Phosphatase 72 mIU/ml 50-136 Normal (applies to non-num michelle results) [facility] Total Bilirubin 0.40 mg/dl 0.20-1.00 Normal (applies to non-numeric results) [facility] Blood Urea Nitrogen 13 mg/dl 7-18 Normal (applies to non-nume thomas results) [facility] Creatinine 0.66 mg/dl 0.51-0.95 Normal (applies to non-numeric resul ts) [facility] N-Acetylcysteine (NAC) and Metamizole nava ve the potential to falselydepress Creatinine results. Baseline values before medication adminstration are recommended. Patients undergoing treatment with phenindione will have falselydepressed results. Patients on phenindione therapy should be tested with an alternativeCREA method. Glomerular Filtration Rate >90.00 mL/min/1.73m2 [facility] GFR Reference Ranges:Normal Function or Mild Renal Disease,if clinically at risk:>or= 60Moderately decreased:30 - 59Severely decreased:15 - 29Renal Failure:<15 Please note that the MDRD equation requires an additional adjustment forAfrican-Americans (multiply the GFR result by 1.210).Glomarular Filtration Rate (GFR) is estimated based on the MDRDequation, which assumes a steady state for creatinine (Candace Int Med 139/2 137-149, 2003), as recommended by the NationalKidney Disease Education Program in conjunction with the National Institutes of Health and the National KidneyFoundation. The [place] method used in calculating this result is traceable to IDMS standards. Glucose 98 mg/dl 70-110 Normal (applies to non-numeric resul ts) [facility] Sulfasalazine has the potential to false ly depress Glucose results. Sulfapyridine has the potential to falsely elevate Glucose results. Baseline values before medication administration are recommended. Calcium 9.4 mg/dl 8.5-10.1 Normal (applies to non-numeric resul ts) [facility] Total Protein 7.7 g/dl 6.4-8.2 Normal (applies to non-numeric re sults) [facility] Albumin 3.7 g/dl 3.4-5.0 Normal (applies to non-numeric resul ts) [facility] Sodium 140 mEq/L 136-145 Normal (applies to non-numeric resul ts) [facility] Potassium 3.9 mEq/L 3.5-5.1 Normal (applies to non-numeric resul ts) [facility] Chloride 109.0 mEq/L 98.0-107.[address] [facility] Anion Gap 7.9 [facility] Carbon Dioxide 27.0 mMol/L 21.0-32.0 Normal (applies to non-numeric results) [facility] The above 16 analytes were performed by [facility] [id number], ,[place] [address] ID Date Data Source [id number] 11/10/2019 10:25:00 AM EDT [facility] Name Value Range Interpretation Code Description Data Azalea rce(s) Supporting Document(s) PT,Patient (on Anticoag. Therapy) 10.0 Seconds 10.1-11.3 Below low n ormal [facility] Discrepant results may occur due to anti coagulant effects such ascoumadin, direct thrombin inhibitors; argatroban (Acova), bivalirudin(Angiomax) or dabigatran (Pradaxa) or direct factor Xa inhibitors;rivaroxaban (Xarelto), apixaban (Eliquis) and edoxaban (Savaysa). INR (on Anticoagulant Therapy) 0.9 2.0-3.5 Below low normal [facility] International Normalized Ratio ( INR)Indications INR [...] bleeding.The above 2 analytes were performed by [facility] [id number], ,[place] [address] ID Date Data Source [id number] 11/10/2019 10:08:00 AM EDT [facility] Name Value Range Interpretation Code Description Data Azalea rce(s) Supporting Document(s) WBC 10.20 x1000/ul 4.80-10.00 Above high normal [facility] RBC 4.67 x1Mil/ul 4.20-5.40 Normal (applies to non-numeric re sults) [facility] Hemoglobin 14.3 g/dl 12.0-16.0 Normal (applies to non-numeric resul ts) [facility] Hematocrit 43.3 % 37.0-47.0 Normal (applies to non-numeric resul ts) [facility] MCV 92.7 fL 81.0-99.0 Normal (applies to non-numeric resul ts) [facility] MCH 30.6 pg 27.0-31.0 Normal (applies to non-numeric resul ts) [facility] MCHC 33.0 g/dl 32.2-37.0 Normal (applies to non-numeric resul ts) [facility] RDW 12.7 % 11.5-14.5 Normal (applies to non-numeric resul ts) [facility] Platelet Count 296 x1000/ul 130-400 Normal (applies to non-numeric results) [facility] MPV 9.5 fL 9.4-12.4 Normal (applies to non-numeric resul ts) [facility] Neutrophils 68.0 % 40.0-74.0 Normal (applies to non-numeric resu lts) [facility] Lymphocytes 21.7 % 19.0-48.0 Normal (applies to non-numeric resu lts) [facility] Monocytes 8.8 % 3.4-9.0 Normal (applies to non-numeric resul ts) [facility] Eosinophils 0.6 % 0.0-7.0 Normal (applies to non-numeric resu lts) [facility] Basophils 0.4 % 0.0-2.0 Normal (applies to non-numeric resul ts) [facility] Immature Granulocytes 0.5 % 0.0-0.5 Normal (applies to non-nu meric results) [facility] Nucleated RBCs 0.00 % 0.00-0.20 Normal (applies to non-numeric r esults) [facility] Abs. Neutrophils 6.94 x1000/ul 1.92-8.31 Normal (applies to non-numeric results) [facility] Abs. Lymphocyte 2.21 x1000/ul 1.20-3.70 Normal (applies to non-n umeric results) [facility] Abs. Monocytes 0.90 x1000/ul 0.14-0.97 Normal (applies to non-nu meric results) [facility] Abs. Eosinophils 0.06 x1000/ul 0.00-0.76 Normal (applie s to non-numeric results) [facility] Abs. Basophils 0.04 x1000/ul 0.00-0.22 Normal (applies to non-n umeric results) [facility] Abs. Immature Gran. 0.05 x1000/ul 0.00-0.02 Above high normal [facility] Abs. Nucleated RBCs 0.00 x1000/ul 0.00-0.02 Normal (appl ies to non-numeric results) [facility] The above 24 analytes were performed by [facility]'s [id number], ,[place] [address] ID Date Data Source [id number] 11/10/2019 09:25:16 AM EDT [facility] Name Value Range Interpretation Code Description Data Azalea rce(s) Supporting Document(s) ED Triage Notes [facility] KFUXUz2cBmOZAvYd56/YGQpeBWFio1XmIWggQXi7FNihTXLmH5JoQLO2zN2vTVW9IVxOZcXtIjLuHmUs lbm [file] ICAgICAgICAgICAgICAgICAgICAgICAgICAgICAgIC AgICAgICAgICAgICAgICAgICAgICAgICAgICAgICAgICANCiAgICAgICAgICAgICAgICAgICAgICAgIC AgICAgICAgICAgICAgICAgICAgICAgICAgICAgICAgICAgICAgICAgICAgICAgICAgICAgICAgICAgIC AgICAgICAgICAgICAgICANCiAgICAgICAgICAgICAg ICAgICAgICAgICAgICAgICAgICAgICAgICAgICAgICAgICAgICAgICAgICAgICAgICAgICAgICAgICAg ICAgICAgICAgICAgICAgICAgICAgICAgICANCiAgICAgICAgICAgICAgICAgICAgICAgICAgICAgICAg ICAgICAgICAgICAgICAgICAgICAgICAgICAgICAgIC AgICAgICAgICAgICAgICAgICAgICAgICAgICAgICAgICAgICANCiAgICAgICAgICAgICAgICAgICAgIC AgICAgICAgICAgICAgICAgICAgICAgICAgICAgICAgICAgICAgICAgICAgICAgICAgICAgICAgICAgIC AgICAgICAgICAgICAgICAgICANCiAgICAgICAgICAg ICAgICAgICAgICAgICAgICAgICAgICAgICAgICAgICAgICAgICAgICAgICAgICAgICAgICAgICAgICAg ICAgICAgICAgICAgICAgICAgICAgICAgICAgICANCiAgICAgICAgICAgICAgICAgICAgICAgICAgICAg ICAgICAgICAgICAgICAgICAgICAgICAgICAgICAgIC AgICAgICAgICAgICAgICAgICAgICAgICAgICAgICAgICAgICAgICANCiAgICAgICAgICAgICAgICAgIC AgICAgICAgICAgICAgICAgICAgICAgICAgICAgICAgICAgICAgICAgICAgICAgICAgICAgICAgICAgIC AgICAgICAgICAgICAgICAgICAgICANCiAgICAgICAg ICAgICAgICAgICAgICAgICAgICAgICAgICAgICAgICAgICAgICAgICAgICAgICAgICAgICAgICAgICAg ICAgICAgICAgICAgICAgICAgICAgICAgICAgICAgICANCiAgICAgICAgICAgICAgICAgICAgICAgICAg ICAgICAgICAgICAgICAgICAgICAgICAgICAgICAgIC AgICAgICAgICAgICAgICAgICAgICAgICAgICAgICAgICAgICAgICAgICANCjw/kZZuY8cjzBSoscK7F4 xcXs4RLw3RVP4jk1UhKVYtHDjnqaXyTdjLZrJaATLjHwnWEni3KXtjHW7RwWRmS5TyI6CwZFxwJI2WOB YxMCExyVIuBYZdYQHfIgD5JPFbMEzyCX0MtYGrDKdp FNPiEJFuFE0SXODaD666zdDcOH9SYx7OOrFtEU6iwk2ZBXtrJWYxTikVGbn8UOryLT8FtEYzgZNhLZJb UZXZGkNdA9ylp0PbNElcNLDMURflDX7Cf3QnfUHwLXo+Jd1YXO6ho4CaZErcKJOvPK1abz8DRHdQLfDw V9WxdHemDKASCMDneCCmRNQHb4QkibNthSAAEQzfFG piC6TeKwJrcJouJp8uVKGlRu6pBF1jUCHyZQU0DeJ2EJASQE6WKSWxPDGusLZrJFVnFTKIXY8EKCurUT S3UjedhdFvkBAfXPkgJB3JWOAdiqEnHJfoDCJMVHz+Zr7LRM2pa4YdRGqnHRXkGU3wpx9CBXoOPxVpN8 T2rSLyG5G8MLiqNv5NACKfSFLaZIBsFNQZRZoyPB9G YS0jjpO5QG5JnYUiABDiSOScvNUhEXr0Q49miCIyXStfJE7VJBL+Jorge+Nc9RVJQjJSMyDVIjPmMrGSIK NaBwE1GsW8IEt2TfZ7DvLV59rZageiGhQWrbWD9MVZ3uWPRhIHNYCS4HqNZiwF8ytqHyMxXyNTTFCnJn X51rwKXsLHUoVPP1AUNbLz8AQYGaY0XlhgTbzJbxzy FhKCEsHWJDQF8XDUezlsMyeIKmuOjcNL05cNcoTZ0ZUv7MLfGzZD6iqy7HtYYyYi8BJBCsQN6FKBRbPX VpPGNtCTK9PDDeIhYpMSjoDEByTROoVHK9FQTvYJHbDZ1FAvLzXANzMKC8KrPyUFLrHNAnko8UMJJfXD VaVoVnDMXqSBMgBJSvFAdeRDUjUMRzXYZ1EFMpITPg SJ9HOgTrQJWaBTN7JVsbQPYyKYBqzs3VIZGeIVKsKFxuXtXlSCQzZPMvGNlxUKKdRAVnVfoxRIMiWTNn DY1XSpViKDAoUEL6RTPiIAFnYMMmes5QVVQhEEPkHdX0JoMmSBMeYECoEYulJRJlETX8ALF4TKHzBBBy AJ6LGdHuOUCkWMJrVeGzAYLkFZVhlg5DENTwYQYjJE EjPVGrOGWoJUFbHOqrJTNzBRJ2VxHoARSnJSPjQG9LEjHtGZBhBGK2DpUpOEVnNSIqun3WBRKvYYEpYW t8HPLmWFTdBDBfEFtgNBZsEQG1HVxnRCZwFOPwCM8MLvQlXLWuNIu7EHlpJNEhQXDffw7HTUTnMICtHq V3VXRzAFTwNCQsLRtfWWZsWOB5ABM1GCTzPODfXF6K XqIlPBebFKQQQqm2DYdwG5m8FWXiKK8RS7Yyw4ChIEgnLASOJVcmQG9bfgJqJNOuXd5BN7mMDtvmBcxe WLKtZGN4IAc1VaC4BYP1TqDzJfLsMFY1HOW5Lp9kRVZmPXC3SWQ8TyqwXCXjTRepYMjsEaP5NWY3BnF3 CxkvDmEsGT9LNp0NHvL7RWF7yTHrRw4KQGA8Wu8NKMAWK1HWGv== ID Date Data Source [id number] 09/30/2019 10:11:54 AM EST [facility] Name Value Range Interpretation Code Description Data Azalea rce(s) Supporting Document(s) Progress Note [facility] YANRNt6zVmUAWfNj92/ZJYopMDLnm0IhLNlpYPb8JTncURPhY0PuHNR5oK6qAQR6EPjJBjWmZpSgAZLb lbm [file] [facility]//2/198nO891arpKzS5ia07pSDVD4JZRQT78TP3hyVMdAy+qm2WfaNFXPrPzDo2QrY3O5pzEls20 [file] Cj4+GElabUQymRbnTOXGYlA6MMJ7IBxdIPMPRn5H Procedure Social History Code Duration Value Status Description Data Source(s ) Smoking 05/12/2020 12:00:00 AM EDT Patient has never smoked co mpleted Patient has never smoked [facility] Alcohol intake 11/10/2019 12:00:00 AM EDT Not Currently completed [facility] Smoking 11/10/2019 12:00:00 AM EDT Never smoker completed Never s [facility] Alcohol intake 09/30/2019 12:00:00 AM EST Current drinker of al cohol (finding) completed Current drinker of alcohol (finding) [facility] Smoking 09/30/2019 12:00:00 AM EST Never smoker completed Never s [facility] Vital Signs ID Date Data Source UNK Name Value Range Interpretation Code Description Data Source(s) Respiratory rate 16 /min 16 /min MEDENT ( [facility]) Body mass index (BMI) [Ratio] 21.6 kg/m2 21.6 k g/m2 MEDENT ([facility]) Body weight 130.00 [lb_av] 130.00 [lb_av] MEDEN T ([facility]) Body height 65 [in_i] 65 [in_i] MEDENT ([facility]) 5'5" Body weight 121 [lb_av] 121 [lb_av] ANALILIA ([facility]) Systolic blood pressure 142 mm[Hg] 142 mm[Hg] A THENA ([facility]) Body mass index (BMI) [Ratio] 20.1 kg/m2 20.1 k g/m2 ANALILIA ([facility]) Body height 65 [in_i] 65 [in_i] ANALILIA ([facility]) Diastolic blood pressure 98 mm[Hg] 98 mm[Hg] ANALILIA ([facility]) Body weight 121 [lb_av] 121 [lb_av] ANALILIA ([facility]) Systolic blood pressure 142 mm[Hg] 142 mm[Hg] A THENA ([facility]) Body mass index (BMI) [Ratio] 20.1 kg/m2 20.1 k g/m2 ANALILIA ([facility]) Body height 65 [in_i] 65 [in_i] ANALILIA ([facility]) Diastolic blood pressure 98 mm[Hg] 98 mm[Hg] ANALILIA ([facility]) Oxygen saturation in Arterial blood by Pulse oximetry 99 % 99 % gMED ([facility]) Respiratory rate 15 /min 15 /min gMED ([facility]) Heart rate 112 /min 112 /min gMED ([facility], /[facility]) Body temperature 99.1 [degF] 99.1 [degF] gMED ( [facility], /[facility]) Diastolic blood pressure 91 mm[Hg] 91 mm[Hg] gMED ([facility]) Systolic blood pressure 141 mm[Hg] 141 mm[Hg] g MED ([facility], /[facility]) Body mass index (BMI) [Ratio] 20.3 kg/m2 20.3 k g/m2 gMED ([facility], /[facility]) Body weight 122 [lb_av] 122 [lb_av] gMED ([facility]) Body height 65 [in_i] 65 [in_i] gMED ([facility]) Body mass index (BMI) [Ratio] 21.6 kg/m2 21.6 k g/m2 MEDENT ([facility]) Body weight 130.00 [lb_av] 130.00 [lb_av] MEDEN T ([facility]) Body height 65 [in_i] 65 [in_i] MEDENT ([facility]) 5'5" Oxygen saturation in Arterial blood by Pulse oximetry 98 % 98 % [facility] Respiratory rate 15 /min 15 /min [facility] Heart rate 83 /min 83 /min [facility] Diastolic blood pressure 88 mm[Hg] 88 mm[Hg] [facility] Systolic blood pressure 146 mm[Hg] 146 mm[Hg] M [facility] Body temperature 37.17 Simin 37.17 Simin [facility] Body mass index (BMI) [Ratio] 21.97 kg/m2 21.97 kg/m2 [facility] Body weight 59.875 kg 59.875 kg [facility] Body height 165.1 cm 165.1 cm [facility] Body mass index (BMI) [Ratio] 21.6 kg/m2 21.6 k g/m2 MEDENT ([email or web address]) Body weight 130.00 [lb_av] 130.00 [lb_av] MEDEN T ([email or web address]) Body height 65 [in_i] 65 [in_i] MEDENT ([facility]) 5'5" Diastolic blood pressure 90 mm[Hg] 90 mm[Hg] MEDENT ([email or web address]) Systolic blood pressure 124 mm[Hg] 124 mm[Hg] M EDENT ([facility]) Heart rate 16 /min 16 /min [facility] ([facility]) Body mass index (BMI) [Ratio] 21.6 kg/m2 21.6 k g/m2 MED[facility] ([facility]) Body weight 130.00 [lb_av] 130.00 [lb_av] MEDEN T ([facility]) Body height 65 [in_i] 65 [in_i] MEDENT ([facility]) 5'5" ID Date Data Source [id number] 09/30/2019 10:11:[address] [facility] Name Value Range Interpretation Code Description Data Source(s) WEIGHT RECORDED 134 lb 134 lb [facility] Body height Measured 67.01 in 67.01 in [facility] Patient Treatment Plan of Care Planned Activity Planned Date Details Description Data Source (s) 05/09/2020 12:00:00 AM EDT g MED ([facility]) 12 HR Orphenadrine Citrate 100 MG Extended Release Ora l Tablet 11/10/2019 12:00:00 AM EDT [facility] Ibuprofen 800 MG Oral Tablet 11/10/2019 12:00:[facility] Dext[facility] 70 1 MG/ML / hypromellose 3 MG/ML Ophthalmic S olution 07/05/2019 12:00:00 AM [facility] Acetaminophen 325 MG / Hydrocodone Bitartrate 10 MG Or al Tablet 10/30/2016 12:00:00 AM [facility] ospital tramadol ANALILIA ([facility]) topiramate 25 MG Oral Capsule ANALILIA ([facility]) oxcarbazepine ANALILIA ([facility]) 12 HR Orphenadrine Citrate 100 MG Extended Release Oral Tablet ANALILIA ([facility]) Ondansetron 4 MG Oral Tablet ANALILIA ([facility]) lidocaine 5 % medicated patch and dimethicone 5 % topical cream ANALILIA ([facility]) Acetaminophen 325 MG / Hydrocodone Bitartrate 5 MG Oral Tablet ANALILIA ([facility]) Cyclobenzaprine hydrochloride 10 MG Oral Tablet ANALILIA ([facility]) Clindamycin 300 MG Oral Capsule ANALILIA ([facility]) 12 HR Carbamazepine 200 MG Extended Release Oral Tablet ANALILIA ([facility]) tramadol ANALILIA ([facility]) topiramate 25 MG Oral Capsule ANALILIA ([facility]) oxcarbazepine ANALILIA (The [facility]) 12 HR Orphenadrine Citrate 100 MG Extended Release Oral Tablet ANALILIA ([facility]) Ondansetron 4 MG Oral Tablet ANALILIA ([facility]) lidocaine 5 % medicated patch and dimethicone 5 % topical cream ANALILIA ([facility]) Acetaminophen 325 MG / Hydrocodone Bitartrate 5 MG Oral Tablet ANALILIA ([facility]) Cyclobenzaprine hydrochloride 10 MG Oral Tablet [facility]IA ([facility]) Clindamycin 300 MG Oral Capsule ANALILIA ([facility]) 12 HR Carbamazepine 200 MG Extended Release Oral Tablet ANALILIA ([facility]) UNABLE TO FIND [facility] dextrose 5 % SOLN 250 mL with calcium di sodium versenate 1 GM/5ML SOLN 50 mg/kg/day [facility]
[2020-10-26 17:02] LABS: BASO # 0.1 10^3/uL (0.0-0.2); BASO % 0.8 % (0.0-1.0); EOS # 0.1 10^3/uL (0.0-0.5); EOS % 1.8 % (0.0-3.0); HEMATOCRIT 40.1 % (36.0-47.0); HEMOGLOBIN 13.2 g/dl (12.0-15.5); LYMPH # 2.6 10^3/uL (1.5-5.0); LYMPH % 36.2 % (24.0-44.0); MEAN CORPUSCULAR HEMOGLOBIN 30.2 pg (27.0-33.0); MEAN CORPUSCULAR HGB CONC 32.9 g/dl (32.0-36.5); MEAN CORPUSCULAR VOLUME 91.8 fl (80.0-96.0); MONO # 0.8 10^3/uL (0.0-0.8); MONO % 11.2 % (2.0-8.0); NEUTROPHILS # 3.5 10^3/uL (1.5-8.5); NEUTROPHILS % 49.7 % (36.0-66.0); PLATELET COUNT, AUTOMATED 257 10^3/uL (150-450); RED BLOOD COUNT 4.37 10^6/uL (4.00-5.40); WHITE BLOOD COUNT 7.1 10^3/uL (4.0-10.0)
[2020-10-26 17:25] LABS: ALBUMIN 3.7 GM/DL (3.2-5.2); ALT/SGPT 28 U/L (12-78); BILIRUBIN,DIRECT 0.1 MG/DL (0.0-0.2); BILIRUBIN,TOTAL 0.2 MG/DL (0.2-1.0); BLOOD UREA NITROGEN 14 MG/DL (7-18); CALCIUM LEVEL 8.8 MG/DL (8.5-10.1); CARBON DIOXIDE LEVEL 31 MEQ/L (21-32); CHLORIDE LEVEL 111 MEQ/L (98-107); GLOMERULAR FILTRATION RATE > 60.0 (>58); GLUCOSE, FASTING 117 MG/DL (70-100); LIPASE 142 U/L (73-393); POTASSIUM SERUM 3.8 MEQ/L (3.5-5.1); SODIUM LEVEL 143 MEQ/L (136-145); TOTAL PROTEIN 6.8 GM/DL (6.4-8.2)
[2020-10-26 17:26] LABS: HCG, SERUM QUALITATIVE NEGATIVE (NEGATIVE)
--- NOTE | 2020-10-26 17:53 | REP ---
INDICATION: r shoulder pain. COMPARISON: None. TECHNIQUE: AP internal and external rotation views, two views presented. FINDINGS: The right glenohumeral and acromioclavicular joints are normally aligned. Periarticular soft tissues are unremarkable. No fracture or subluxation is seen. Patient is status post lower cervical spine and midthoracic spine surgical fusion. IMPRESSION: No fracture or subluxation seen. Status post cervicothoracic spine fusion procedures. <Electronically signed by Jose Vieira > 10/26/20 [id number]
--- NOTE | 2020-10-26 17:54 | REP ---
INDICATION: r scapular pain. COMPARISON: None. TECHNIQUE: AP and tangential scapular Y-views. FINDINGS: Two views of the right scapula show no evidence of scapular fracture or bony destructive lesion. The right glenohumeral and acromioclavicular joints are normally aligned. Periarticular soft tissues are unremarkable. Fusion hardware is noted in the thoracic and cervical spine. IMPRESSION: Negative right scapular views. <Electronically signed by Jose Vieira > 10/26/20 [id number]
[2020-10-26 18:48] VITALS: BP 139/81
== END 2020-10-26 18:49 | disposition home or self-care (01) ==
LOC: M ED 15:52
DX: N63.20 Unspecified lump in the left breast, unspecified quadrant (principal); M25.511 Pain in right shoulder; G90.50 Complex regional pain syndrome I, unspecified; K86.2 Cyst of pancreas; E03.9 Hypothyroidism, unspecified; G43.909 Migraine, unspecified, not intractable, without status migrainosus; F12.10 Cannabis abuse, uncomplicated; Z88.1 Allergy status to other antibiotic agents; Z88.6 Allergy status to analgesic agent; Z79.899 Other long term (current) drug therapy

== ENCOUNTER 2020-12-12 10:51 | Emergency (ER) | payer OTHER ==
[~2020-12-12] VITALS: Ht 165.1 cm; Wt 54.5 kg
[~2020-12-12 10:51] MED LIST changes: +LEVO-53; +OXCA150T21
[2020-12-12] MEDS ORDERED: TRAM1CAP15 PO (11:02)
[2020-12-12] MEDS ORDERED: OXCA150T21 PO (11:02)
[2020-12-12] MEDS ORDERED: MORPHINE 4 MG/ML 1ML VIAL/SYRINGE (J2270) IM ONE (11:55)
--- NOTE | 2020-12-12 11:58 | REP ---
INDICATION: low back pain, R radiculopathy-deg bone disease. COMPARISON: None. TECHNIQUE: Axial CT images with multiplanar reformations. FINDINGS: There is only minimal degenerative disc disease. Vertebral heights and disc heights are overall preserved. No malalignments. There are pars defects bilaterally at FL level. No obvious listhesis, canal or foraminal stenosis as a result IMPRESSION: No significant degenerative disease noted. Bilateral pars defects at L5. No obvious listhesis, canal or foraminal stenosis as a result. MRI may be informative for further evaluation. <Electronically signed by Negro Ferreira > 12/12/20 [id number]
[2020-12-12 12:46] VITALS: BP 158/81
== END 2020-12-12 14:02 | disposition home or self-care (01) ==
LOC: M ED 10:51
DX: M51.36 Other intervertebral disc degeneration, lumbar region (principal); Z88.1 Allergy status to other antibiotic agents; Z88.6 Allergy status to analgesic agent; Z88.8 Allergy status to other drugs, medicaments and biological substances
CPT/HCPCS: 72131; 96372; 99283; J2270

== ENCOUNTER → 2021-03-24 | Outpatient (CLI) | payer MEDICARE, OTHER ==
[~2021-03-24] MED LIST changes: +OXCA150T21 PO; +TRAM1CAP15 PO
--- NOTE | 2021-03-24 13:17 | REP ---
INDICATION: SHOOTING PAIN DOWN LT LEG,ARM NUMBNESS S/P SURGERY. COMPARISON: None. TECHNIQUE: Sagittal and axial T1 and T2-weighted scans are acquired in the usual fashion with and without fat saturation. Sequences include spin echo, turbo spin-echo, and STIR imaging sequences. FINDINGS: There is metallic field susceptibility artifact emanating from thoracic spine fusion hardware including transpedicle screws bilaterally with interconnecting dorsal fixation rods. There is ventral discectomy and fusion hardware at C6-7. In the thoracic canal the fusion hardware is seen extending from T4 through T9. And the thecal sac is largely obscured from these levels by the hardware generated artifact. The thoracic cord above and below this level is normal in caliber, course, and signal intensity. No thoracic disc protrusion or cord compressive lesion is seen. IMPRESSION: The midthoracic spinal canal is largely obscured by metallic field susceptibility artifact from fusion hardware. Otherwise negative. <Electronically signed by Jose Vieira > 03/24/21 [id number]
== END ==
LOC: M RAD 11:01
PROVIDERS: ATTEND Nurse Practitioner Family
DX: M79.605 Pain in left leg (principal); R20.2 Paresthesia of skin

== ENCOUNTER 2021-05-14 16:23 | Emergency (ER) | payer OTHER ==
[~2021-05-14] VITALS: Ht 165.1 cm; Wt 56.6 kg
[2021-05-14 16:26] VITALS: BP 178/88
== END 2021-05-15 01:02 | disposition left against medical advice (07) ==
LOC: M ED 16:23
DX: Z53.21 Procedure and treatment not carried out due to patient leaving prior to being seen by health care provider (principal)

== ENCOUNTER 2021-05-30 14:41 | Emergency (ER) | payer MEDICARE, OTHER ==
[~2021-05-30] VITALS: Ht 165.1 cm; Wt 57.4 kg
[2021-05-30] MEDS ORDERED: ERGO500029 (14:51)
[2021-05-30] MEDS ORDERED: CELE1CAP9 (14:51)
[2021-05-30 17:21] LABS: HEMATOCRIT 40.6 % (36.0-47.0); HEMOGLOBIN 13.5 g/dl (12.0-15.5); MEAN CORPUSCULAR HEMOGLOBIN 30.8 pg (27.0-33.0); MEAN CORPUSCULAR HGB CONC 33.3 g/dl (32.0-36.5); MEAN CORPUSCULAR VOLUME 92.5 fl (80.0-96.0); PLATELET COUNT, AUTOMATED 290 10^3/uL (150-450); RED BLOOD COUNT 4.39 10^6/uL (4.00-5.40)
[2021-05-30 17:37] LABS: BLOOD UREA NITROGEN 13 MG/DL (7-18); CALCIUM LEVEL 9.1 MG/DL (8.5-10.1); CARBON DIOXIDE LEVEL 28 MEQ/L (21-32); CHLORIDE LEVEL 106 MEQ/L (98-107); CREATININE FOR GFR 0.65 MG/DL (0.55-1.30); GLOMERULAR FILTRATION RATE > 60.0 (>58); GLUCOSE, FASTING 125 MG/DL (70-100); POTASSIUM SERUM 3.8 MEQ/L (3.5-5.1); SODIUM LEVEL 140 MEQ/L (136-145)
[2021-05-30 17:54] LABS: HCG, SERUM QUALITATIVE NEGATIVE (NEGATIVE)
[2021-05-30 20:16] LABS: ALBUMIN 3.5 GM/DL (3.2-5.2); ALT/SGPT 18 U/L (12-78); BILIRUBIN,DIRECT 0.1 MG/DL (0.0-0.2); BILIRUBIN,TOTAL 0.3 MG/DL (0.2-1.0); LIPASE 117 U/L (73-393); TOTAL PROTEIN 7.2 GM/DL (6.4-8.2)
[2021-05-30] MEDS ORDERED: ISOVUE-370 76% 100ML VIAL As Ordered ONE (20:20)
--- NOTE | 2021-05-30 21:16 | REPVR ---
PROCEDURE INFORMATION: Exam: US Duplex Left Lower Extremity Veins, Limited Exam date and time: 05/30/2021 8:21 PM Age: 46 years old Clinical indication: Pain; Leg, lower; Left; Additional info: Change sensation groin pain TECHNIQUE: Imaging protocol: Real-time Duplex ultrasound of the Left Lower Extremity with 2-D johnston scale, color Doppler flow and spectral waveform analysis with image documentation. Limited exam focused on the left lower extremity veins. COMPARISON: US PELVIC NON-OB COMPLETE 03/17/2020 10:36 PM FINDINGS: Left deep veins: Unremarkable. The common femoral, femoral, proximal profunda femoral and popliteal veins are patent without thrombus. Normal Doppler waveforms. Normal compressibility and/or augmentation response. Left superficial veins: Unremarkable. Saphenofemoral junction is patent without thrombus. Soft tissues: Unremarkable. IMPRESSION: No evidence of deep vein thrombosis. Electronically signed by: Yusef Maier On 05/30/2021 21:16:24 PM
--- NOTE | 2021-05-30 21:16 | REPVR ---
PROCEDURE INFORMATION: Exam: CT Abdomen And Pelvis With Contrast Exam date and time: 05/30/2021 8:31 PM Age: 46 years old Clinical indication: Abdominal pain; Prior surgery; Additional info: Abdominal pain/hx congestive pelvic syndrome TECHNIQUE: Imaging protocol: Computed tomography of the abdomen and pelvis with contrast. Radiation optimization: All CT scans at this facility use at least one of these dose optimization techniques: automated exposure control; mA and/or kV adjustment per patient size (includes targeted exams where dose is matched to clinical indication); or iterative reconstruction. Contrast material: ISOVUE 370; Contrast volume: 100 ml; Contrast route: INTRAVENOUS (IV); COMPARISON: CT ABD/PEL W/IV CONTRAST ONLY 04/13/2020 11:34 AM FINDINGS: Liver: There is a diffuse decrease in hepatic parenchymal density, consistent with steatosis. Gallbladder and bile ducts: Normal. No calcified stones. No ductal dilation. Pancreas: Normal. No ductal dilation. Spleen: Normal. No splenomegaly. Adrenal glands: Normal. No mass. Kidneys and ureters: Normal. No hydronephrosis. Stomach and bowel: Unremarkable. No obstruction. No mucosal thickening. Appendix: No evidence of appendicitis. Intraperitoneal space: Unremarkable. No free air. No significant fluid collection. Retroperitoneal space: Numerous surgical clips demonstrated in the right perirenal region, retroperitoneal regions and pelvis. Vasculature: Unremarkable. No abdominal aortic aneurysm. Lymph nodes: Unremarkable. No enlarged lymph nodes. Urinary bladder: Unremarkable as visualized. Reproductive: Unremarkable as visualized. Bones/joints: Mild central spinal stenosis L4-L5. Bulging annulus L5-S1. Bilateral L5 spondylolysis without significant spondylolisthesis. The para Soft tissues: Unremarkable. IMPRESSION: 1. There is a diffuse decrease in hepatic parenchymal density, consistent with steatosis. 2. No acute findings. Electronically signed by: Yusef Maier On 05/30/2021 21:15:56 PM
--- NOTE | 2021-05-30 23:12 | REPVR ---
PROCEDURE INFORMATION: Exam: MR Lumbar Spine Without and With Contrast Exam date and time: 05/30/2021 10:17 PM Age: 46 years old Clinical indication: Low back pain; Additional info: Loss bowel/bladder/numbness groin left TECHNIQUE: Imaging protocol: Multiplanar magnetic resonance images of the lumbar spine without and with intravenous contrast. Contrast material: PROHANCE; Contrast volume: 11 ml; Contrast route: INTRAVENOUS (IV); COMPARISON: CT Spine, lumbar w/o contrast 12/12/2020 11:34 AM FINDINGS: Trace anterolisthesis of L5 on S1. Bilateral L5 pars defects. Vertebral body heights are preserved. There is disc desiccation at L4-L5 and L5-S1. Negative for discitis/osteomyelitis. No epidural fluid collection. Conus medullaris terminates at L1. No pathologic intrathecal enhancement. L1-L2: Mild bilateral facet joint arthropathy without central or foraminal stenosis. L2-L3: No significant central or foraminal stenosis. L3-L4: Mild bilateral facet joint arthropathy without central or foraminal stenosis. L4-L5: Minimal disc bulge and mild bilateral facet joint arthropathy. No significant central or foraminal stenosis. L5-S1: Mild disc bulge with right subarticular annular tear. There is no significant central canal stenosis. Mild bilateral foraminal stenosis. IMPRESSION: 1. No acute abnormality involving the lumbar spine. 2. No significant central canal compromise throughout. 3. Mild bilateral foraminal stenosis at L5-S1. 4. Minimal anterolisthesis of L5 on S1 secondary to bilateral L5 pars defects. Electronically signed by: Abdulaziz Espinal On 05/30/2021 23:11:26 PM
--- NOTE | 2021-05-30 23:42 | REPVR ---
PROCEDURE INFORMATION: Exam: US Pelvis Complete, Transabdominal and US Pelvis, Transvaginal Exam date and time: 05/30/2021 11:25 PM Age: 46 years old Clinical indication: Pelvic pain; Prior surgery; Surgery date: 1-6 months; Surgery type: Stents placed in pelvic regions d/t pelvic congested syndrome; Additional info: Pelvic congestiion TECHNIQUE: Imaging protocol: Real-time transabdominal and transvaginal pelvic ultrasound (complete) with image documentation. Transvaginal imaging was used for better evaluation of the endometrium, adnexa, and/or cervix. COMPARISON: US PELVIC NON-OB COMPLETE 03/17/2020 10:36 PM FINDINGS: Uterus/cervix: Uterus measures 6.6 x 4.6 x 5.3 cm. Endometrium measures 2 mm. Heterogeneous echotexture without focal abnormality. Right adnexa: Right ovary measures 2.2 x 1.0 x 1.9 cm. Right ovary appears within normal limits. Left adnexa: Left ovary measures 2.1 x 0.9 x 1.6 cm. Small complex cyst involving the left ovary measures 9 mm. Negative for left ovarian torsion. Intraperitoneal space: No intraperitoneal fluid. Urinary bladder: Normal. IMPRESSION: 1. No acute abnormality. 2. Small complex cyst involving the left ovary. Electronically signed by: Abdulaziz Espinal On 05/30/2021 23:41:38 PM
[2021-05-31 01:50] VITALS: BP 133/87
== END 2021-05-31 01:54 | disposition home or self-care (01) ==
LOC: M ED 14:41
DX: N39.42 Incontinence without sensory awareness (principal); M48.07 Spinal stenosis, lumbosacral region; N83.202 Unspecified ovarian cyst, left side; E05.00 Thyrotoxicosis with diffuse goiter without thyrotoxic crisis or storm; Z88.1 Allergy status to other antibiotic agents; Z88.6 Allergy status to analgesic agent; Z88.8 Allergy status to other drugs, medicaments and biological substances; R10.84 Generalized abdominal pain; Z79.899 Other long term (current) drug therapy
CPT/HCPCS: 36415; 72158; 74177; 76830; 76856; 80048; 80076; 81001; 83690; 84702; 84703; 85027; 93971; 93976; 99283; Q9967

== ENCOUNTER 2021-11-04 13:22 | Emergency (ER) | payer MEDICARE, MEDICAID ==
[~2021-11-04] VITALS: Ht 165.1 cm; Wt 59.8 kg
[~2021-11-04 13:22] MED LIST changes: +CELE1CAP9; +ERGO500029
[2021-11-04] MEDS ORDERED: TOPA1TAB PO (13:38)
[2021-11-04] MEDS ORDERED: LEVO88TA3 (13:38)
[2021-11-04] MEDS ORDERED: OXCA150T21 (13:38)
[2021-11-04] MEDS ORDERED: ASHL1TAB (13:38)
[2021-11-04] MEDS ORDERED: KETOROLAC 60MG 2ML VIAL IM ONE (16:35)
[2021-11-04] MEDS ORDERED: methocarbamoL 750 MG TAB PO ONE (16:35)
[2021-11-04 17:47] VITALS: BP 193/94
[2021-11-04] MEDS ORDERED: PRED10TA2 PO (18:34)
[2021-11-04] MEDS ORDERED: METH-1165 PO (18:34)
== END 2021-11-04 18:42 | disposition home or self-care (01) ==
LOC: M ED 13:22
DX: M62.838 Other muscle spasm (principal); M54.2 Cervicalgia; Z88.1 Allergy status to other antibiotic agents; Z88.6 Allergy status to analgesic agent; Z88.8 Allergy status to other drugs, medicaments and biological substances
CPT/HCPCS: 72141; 96372; 99283; J1885

== ENCOUNTER → 2022-08-21 | Outpatient (CLI) | payer MEDICARE, MEDICAID ==
[~2022-08-21] MED LIST changes: +ASHL1TAB; +LEVO88TA3; +METH-1165 PO; +PRED10TA2 PO; +TOPA1TAB PO
== END ==
LOC: M WUC 13:15
DX: M34.9 Systemic sclerosis, unspecified (principal)

== ENCOUNTER 2022-12-14 08:39 | Emergency (ER) | payer MEDICAID, MEDICARE ==
[~2022-12-14] VITALS: Ht 165.1 cm; Wt 56.8 kg
[2022-12-14] MEDS ORDERED: AIMO70IN2 (08:53)
[2022-12-14] MEDS ORDERED: ALPR0.25 (08:53)
[2022-12-14] MEDS ORDERED: TRAM50TA2 (08:53)
[2022-12-14] MEDS ORDERED: DIAZ5TAB (08:53)
[2022-12-14] MEDS ORDERED: LEVO100T5 (08:53)
[2022-12-14] MEDS ORDERED: LINZ145C (08:53)
[2022-12-14 12:37] VITALS: BP 148/79
== END 2022-12-14 12:41 | disposition home or self-care (01) ==
LOC: M ED 12:20
DX: M79.631 Pain in right forearm (principal); G89.29 Other chronic pain; M54.9 Dorsalgia, unspecified; I73.00 Raynaud's syndrome without gangrene; E06.3 Autoimmune thyroiditis; E05.90 Thyrotoxicosis, unspecified without thyrotoxic crisis or storm; F12.10 Cannabis abuse, uncomplicated; Z79.3 Long term (current) use of hormonal contraceptives; Z79.899 Other long term (current) drug therapy; Z88.0 Allergy status to penicillin; Z88.1 Allergy status to other antibiotic agents; Z88.5 Allergy status to narcotic agent

== ENCOUNTER → 2023-07-21 | Outpatient (CLI) | payer MEDICARE ==
[~2023-07-21] MED LIST changes: +AIMO70IN2; +ALPR0.25; +CELE0.09; -CELE1CAP9; +DIAZ5TAB; +LEVO100T5; +LINZ145C; +TRAM50TA2
== END ==
LOC: M WUC 11:04
PROVIDERS: ATTEND Family Medicine
DX: K90.0 Celiac disease (principal)